=== PATIENT | female | born 1990 | race Caucasian/White ===

== ENCOUNTER → 2020-08-08 08:40 | Outpatient (CLI) | payer OTHER, SELFPAY ==
[2020-08-08 09:15] LABS: Add Manual Diff / Slide Review NO; Basophils Absolute Auto 100 /uL (0-100); Basophils Percent Auto 0.8 % (0-2); Eosinophils Absolute Auto 100 /uL (0-450); Eosinophils Percent Auto 1.2 % (2-4); Hematocrit 43.2 % (36-46); Hemoglobin 13.9 g/dL (12.0-16.0); Lymphocytes Absolute Auto 2000 /uL (1100-4500); Lymphocytes Percent Auto 19.5 % (25-40); Mean Corpuscular HGB Conc 32.2 % (30-36); Mean Corpuscular Hemoglobin 23.8 PG (26-34); Mean Corpuscular Volume 73.7 fL (80-100); Monocytes Absolute Auto 500 /uL (0-900); Monocytes Percent Auto 5.2 % (3-14); Neutrophils Absolute Auto 7300 /uL (1500-7000); Neutrophils Percent Auto 73.3 % (50-75); Platelet Count 310 X10^3/uL (150-400); Red Blood Cell Count 5.86 X10^6/uL (4.0-5.2); Red Cell Distribution Width 15.5 % (11.6-14.8)
[2020-08-08 09:24] LABS: Hemoglobin A1C% w Est Avg Glu 10.4 % (4.0-6.0)
[2020-08-08 09:33] LABS: Appearance Urine UA CLEAR; Bilirubin Urine UA NEGATIVE (NEGATIVE); Color Urine UA YELLOW; Glucose Urine UA 2+ g/dL (Negative); Ketones Urine UA NEGATIVE (NEGATIVE); Leukocyte Esterase Urine UA 1+ (NEGATIVE); Nitrite Urine UA NEGATIVE (Negative); Occult Blood Urine UA TRACE-LYSED (Negative); Protein Urine UA NEGATIVE (Negative); Urobilinogen Urine UA 0.2 E.U./dL (0.2)
[2020-08-08 09:46] LABS: Bacteria Urine Few (2-10); RBC Urine 0-1/HPF (0-5/HPF); Squamous Epithelial Cell Urine 10-30 /HPF (0-5/HPF); WBC Urine 10-30/HPF (0-5/HPF)
[2020-08-09 03:36] LABS: RPR Screen Non Reactive (Non Reactive)
[2020-08-09 11:39] LABS: Varicella IgG Antibody 222 index (Immune >165)
[2020-08-09 16:02] LABS: Hepatitis B Surface Antigen NEGATIVE s/c (NEGATIVE); Rubella Antibody IgG 21.5 IU/mL (>15)
[2020-08-09 16:41] LABS: HIV 1 & 2 Ab/Ag 4th Gen Combo NEGATIVE (NEGATIVE); Hep C Virus Ab w/Reflex Quant NEGATIVE s/c (NEGATIVE)
== END ==
PROVIDERS: Referring Provider Specialist; Visit Provider Specialist
DX: Z34.01 Encounter for supervision of normal first pregnancy, first trimester (principal); R81 Glycosuria
CPT/HCPCS: 36415; 80055; 81003; 81015; 83036; 86787; 86803; 86850; 86900; 86901; 87086; 87389

== ENCOUNTER → 2020-08-22 08:51 | Outpatient (CLI) | payer OTHER, SELFPAY ==
--- NOTE | 2020-08-22 09:49 | DIET.PN ---
INITIAL GESTATIONAL DIABETES ASSESSMENT ASSESS:? Ms. Segura is a 29 yof female referred for gestational on type 2 diabetes. She did not complete an OGTT. She endorses strong family hx of diabetes including brother who is Type 1. She reports overall healthful eating and exercise habits prior to , but since recent diagnosis her brother recommended doing the keto diet. She has been monitoring her BG 4x/d. She is seeing progress in her reading daily through improved dietary behaviors and continues to lose weight. She appears emotional during our appointment. ? GRACE:? Mar 20, 2021 ? WKS GESTATION:?? 10 weeks ?LABS: A1c: 10.5 ? MEDS: na ? DIET:? B: 2 ww toast L: string cheese, cait, cashews D: fajita chicken ? HT:? 62in ? PRE-PREG WT:? 255lb ? PRE-PREG BMI:??? 46.6 ? CURRENT WT: 240lb (245 in office) ? TOTAL WT GAIN:? -15lb EXERCISE: beach body, walking NUTRITION DX 1. Altered nutrition related lab values r/t gestational diabetes as evidenced by recent labs (OGGT). INTERVENTION 1. Discussed pathophysiology of gestational diabetes and impact of hormone and nutrition/diet on blood sugar control.? Discussed fed versus non-fed state.? 2. Recommended checking fasting, pre-meal and 1hr post prandial (3x/day).? Discussed goals for glycemic control (<95 FBG, <140 1-hr PP).? 3. Discussed the effect of carbohydrates/protein/fat on blood sugar control.? Stressed importance of consistent carbohydrate intake at each meal and provided instructions for recommended servings/portions of carbohydrates/protein per meal.? Provided pt with educational material. 4. Introduced carbohydrate counting and measuring carbohydrate content via servings sizes and reading nutrition labels.? Provided handouts.? Pt will need further review 5. Discussed importance of meal timing and not going >3 hours between meals.? Provided sample meal schedule for pt.? Pt agreeable.?? 6. Discussed importance a pre-eula vitamin and including food sources of calcium, vitamin D, iron and folic acid for baby and mother?s nutrition support. 7. Discussed caffeine intake. Recommend no more than 200 mg/day (1 cup coffee). 8. Discussed rule of 15 for hypoglycemia. 9. Recommend patient purchase Urine Ketone strips and instructed on use and when to contact provider. 10. Recommended patient continue exercise as appropriate per PCP approval. 11. Patient may need medication management, will follow-up with plan of care at next visit after reviewing glucose results.? MONITOR/EVAL: Follow up scheduled X 1 week. Good compliance expected. Review: carb sources, carb counting, portion size, meal timing, BG log, weight.
== END ==
PROVIDERS: Referring Provider Specialist; Visit Provider Specialist
DX: O24.410 Gestational diabetes mellitus in pregnancy, diet controlled (principal); Z3A.10 10 weeks gestation of pregnancy
CPT/HCPCS: G0108

== ENCOUNTER → 2020-09-06 11:22 | Outpatient (CLI) | payer OTHER, SELFPAY | PROVIDERS: Visit Provider Specialist | DX: Z34.01 Encounter for supervision of normal first pregnancy, first trimester (principal); Z3A.12 12 weeks gestation of pregnancy | CPT/HCPCS: 87086 ==

== ENCOUNTER → 2020-09-26 16:39 | Outpatient (CLI) | payer OTHER, SELFPAY | PROVIDERS: Visit Provider Specialist | DX: Z34.02 Encounter for supervision of normal first pregnancy, second trimester (principal); Z3A.15 15 weeks gestation of pregnancy | CPT/HCPCS: 87086 ==

== ENCOUNTER → 2020-10-31 08:43 | Outpatient (CLI) | payer OTHER, SELFPAY ==
--- NOTE | 2020-10-31 08:44 | DI.US.S_ITS ---
PROCEDURE: US OB >= 14 WEEKS FETUS INDICATIONS: ANATOMY OUTSIDE/PRIOR DATING DATA: Last menstrual period (LMP): 06/01/2020. LMP-based estimated date of delivery (GRACE): 03/08/2021 . First dating scan (date and location): 08/08/2020 . Estimated date of delivery (GRACE) from first dating scan: 03/20/2021 . TECHNIQUE: Real-time scanning was performed of the fetus, with image documentation and biometric measurements. Endovaginal scanning: No COMPARISON: [facility], , OB >= 14 WEEKS FETUS, 10/17/2020, 15:37. FINDINGS: General: A single living intrauterine gestation is present. Presentation: Variable Placenta: Placental position is fundal , without previa. Amniotic fluid index: 15.3 cm cm, normal range is 5-24 cm. heart rate: 140 beats per minute. Maternal cervical canal: 4.8 cm cm long. Normal lower limit is 2.5 cm. biometrics: Biparietal diameter: 20 weeks Head circumference: 19 weeks 5 Abdominal circumference: 20 weeks 1 day Femur length: 19 weeks Estimated gestational age from initial scan: 20 weeks Composite gestational age from present scan: 19 weeks 5 days Estimated weight and percentile: 306 g; 28th percentile. Measurement variability for biometric dating: +/- 7 days from 14 weeks to 15 weeks 6 days gestation, +/- 10 days from 16 weeks to 21 weeks 6 days gestation, +/- 2 weeks from 22 weeks to 27 weeks 6 days gestation, +/- 3 weeks for 28 weeks gestation or later. weight reference: 4500 g or EFW >90/95% is considered macrosomia or large for gestational age. EFW <10% is small for gestational age. EFW 5% or less is considered intra-uterine growth restriction. Anatomic survey: Neuro: Ventricles are non-dilated at less than 10 mm. Cisterna magna is normal at 3-11 mm. Cerebellum is normal in size and morphology. Nuchal skin fold: Normal at less than 6 mm between 14-21 weeks gestational age. Face: Nose and lips, facial profile are normal. Spine: No evidence for spina bifida. Heart: 4-chambered heart is present, with normal ventricular outflow tracts. Diaphragm: Diaphragm is intact. Stomach: Left-sided stomach is present. Kidneys: No hydronephrosis. Normal is less than 5 mm in 2nd trimester, less than 7 mm in 3rd trimester. Cord: 3-vessel cord has orthotopic insertion. Bladder: Normal in size. Extremities: All 4 extremities identified. IMPRESSION: 1. Single living IUP redemonstrated and interval growth is normal. 2. Normal anatomic survey. Dictated by: Simon GARCIA Interpreted: Sourav Mei MD on 10/31/2020 at 10:52 Transcribed by: KEIRY on 10/31/2020 at 10:53 Approved by: Sourav Mei M.D. on 10/31/2020 at 14:53
== END ==
PROVIDERS: Referring Provider Specialist; Visit Provider Specialist
DX: Z34.02 Encounter for supervision of normal first pregnancy, second trimester (principal); Z3A.19 19 weeks gestation of pregnancy
CPT/HCPCS: 76811

== ENCOUNTER → 2020-12-19 09:02 | Outpatient (CLI) | payer OTHER, SELFPAY ==
[2020-12-19 10:57] LABS: Hematocrit 36.1 % (36-46)
[2020-12-19 11:42] LABS: GTT (PREG) 1 Hour PP 50gm Dose 209 mg/dL (76-139)
== END ==
PROVIDERS: Referring Provider Specialist; Visit Provider Specialist
DX: Z34.02 Encounter for supervision of normal first pregnancy, second trimester (principal); Z3A.25 25 weeks gestation of pregnancy
CPT/HCPCS: 36415; 82950; 85014; 85018; 86850

== ENCOUNTER → 2021-01-17 08:02 | Outpatient (CLI) | payer OTHER, SELFPAY ==
--- NOTE | 2021-01-17 08:03 | DI.US.S_ITS ---
PROCEDURE: US OB LIMITED INDICATIONS: LARGE FOR DATES; GESTATIONAL DIABETES OUTSIDE/PRIOR DATING DATA: Last menstrual period (LMP): 06/01/2020. LMP-based estimated date of delivery (GRACE): 03/08/2021 . First dating scan (date and location): 08/08/2020 . Estimated date of delivery (GRACE) from first dating scan: 03/20/2021 . TECHNIQUE: Real-time scanning was performed of the fetus, with image documentation and biometric measurements. Endovaginal scanning: No COMPARISON: [facility], , OB >= 14 WEEKS FETUS, 12/19/2020, 8:53. FINDINGS: General: A single living intrauterine gestation is present. Presentation: Vertex. Placenta: Placental position is left fundal , without previa. Amniotic fluid index: 12.8 cm, normal range is 5-24 cm. heart rate: 158 beats per minute. Maternal cervical canal: 5.2 cm long. Normal lower limit is 2.5 cm. biometrics: Biparietal diameter: 32 weeks 5 days Head circumference: 33 weeks Abdominal circumference: 34 weeks Femur length: 33 weeks 5 days Estimated gestational age from initial scan: 31 weeks 1 day Composite gestational age from present scan: 33 weeks 3 days Estimated weight and percentile: 2250 g, 98th percentile Measurement variability for biometric dating: +/- 7 days from 14 weeks to 15 weeks 6 days gestation, +/- 10 days from 16 weeks to 21 weeks 6 days gestation, +/- 2 weeks from 22 weeks to 27 weeks 6 days gestation, +/- 3 weeks for 28 weeks gestation or later. weight reference: 4500 g or EFW >90/95% is considered macrosomia or large for gestational age. EFW <10% is small for gestational age. EFW 5% or less is considered intra-uterine growth restriction. Other: Not applicable. IMPRESSION: 1. Single living IUP redemonstrated and interval growth is greater than expected and developing macrosomia cannot be excluded. Follow-up growth is recommended. Dictated by: Simon GARCIA Interpreted: Sourav Mei MD on 01/18/2021 at 15:51 Transcribed by: KEIRY on 01/18/2021 at 15:53 Approved by: Sourav Mei M.D. on 01/18/2021 at 16:55
== END ==
PROVIDERS: Referring Provider Obstetrics & Gynecology; Visit Provider Obstetrics & Gynecology
DX: O24.913 Unspecified diabetes mellitus in pregnancy, third trimester (principal); O26.843 Uterine size-date discrepancy, third trimester; Z3A.33 33 weeks gestation of pregnancy
CPT/HCPCS: 76815

== ENCOUNTER 2021-02-06 10:47 | Observation (INO) | payer OTHER, SELFPAY ==
[2021-02-06 11:25] LABS: Add Manual Diff / Slide Review NO; Basophils Absolute Auto 100 /uL (0-100); Basophils Percent Auto 0.6 % (0-2); Eosinophils Absolute Auto 0 /uL (0-450); Eosinophils Percent Auto 0.5 % (2-4); Hematocrit 36.7 % (36-46); Hemoglobin 12.2 g/dL (12.0-16.0); Lymphocytes Absolute Auto 1600 /uL (1100-4500); Lymphocytes Percent Auto 16.8 % (25-40); Mean Corpuscular HGB Conc 33.2 % (30-36); Mean Corpuscular Hemoglobin 26.4 PG (26-34); Mean Corpuscular Volume 79.4 fL (80-100); Monocytes Absolute Auto 600 /uL (0-900); Monocytes Percent Auto 5.7 % (3-14); Neutrophils Absolute Auto 7400 /uL (1500-7000); Neutrophils Percent Auto 76.4 % (50-75); Platelet Count 237 X10^3/uL (150-400); Red Blood Cell Count 4.62 X10^6/uL (4.0-5.2); Red Cell Distribution Width 13.2 % (11.6-14.8); White Blood Cell Count 9.7 X10^3/uL (4.5-11.0)
[2021-02-06 11:38] LABS: Alanine Aminotransferase 19 IU/L (<35); Albumin 3.2 g/dL (3.5-5.0); Alkaline Phosphatase 99 U/L (38-126); Aspartate Aminotransferase 23 IU/L (14-36); Bilirubin Total 0.2 mg/dL (0.2-1.3); Blood Urea Nitrogen 6 mg/dL (7-17); Carbon Dioxide 20 mmol/L (22-32); Chloride 105 mmol/L (98-107); Estimated Glomerular Filt Rate > 60.0 mL/min (>60); Globulin 3.1 g/dL (1.7-4.1); Glucose 128 mg/dL (70-100); HEMOLYSIS < 15 (0-50); Potassium 4.2 mmol/L (3.4-5.1); Sodium 133 mmol/L (137-145); Total Protein 6.3 g/dL (6.3-8.2); Uric Acid 5.8 mg/dL (2.5-6.2)
--- NOTE | 2021-02-06 11:50 | PM.OBTRLD ---
Visit Information Visit Information Date of evaluation: 02/06/21 Primary OB Provider: Swathi Webster Reason for Evaluation: Yes non-stress test non-stress test reason: diabetes and hypertension/pre-eclampsia [facility] Medical History (Updated 02/06/21 @ 08:58 by Swathi Webster MD) Anemia (~2017) Chicken pox (~1991) Diabetes mellitus affecting in first trimester Heavy menstrual period Hypertension (~2018) Hypertension affecting in first trimester Irregular menstrual cycle Liver disease (~2017) Melanoma (~2015) Migraines (~2018) Painful menstrual periods PCOS (polycystic ovarian syndrome) Skin cancer (~2015) Surgical History (Updated 08/02/20 @ 19:36 by Niya Ibarra) Anesthesia History of tonsillectomy (~2011) Skin cancer (~04/2015) Status post appendectomy (~1994) Family History (Updated 08/03/20 @ 12:20 by Lianne Jiang RN) Brother Age: 27 Type 1 diabetes Father Sperm donor Grandfather Malignant neoplasm of colon, unspecified part of colon Diabetes mellitus Grandmother Heart disease Mother Age: 59 Essential hypertension Depression Hyperlipidemia Grandmother Stroke Dementia Social History marital status: number of children: 2 household members: spouse and children lives independently: Yes caregiver/support person: No housing: house pets and animals: Yes (Dog & 1 rabbit.) education level: college occupational status: employed current occupational exposures/hazards: No special iliana needs: No seatbelt use: always do you feel safe at home: Yes Smoking Status: Never smoker second hand exposure: No alcohol intake: never substance use type: does not use during the past year weight has: decreased > 10 lbs well-balanced diet: daily or most days daily servings fruits/ve-4 caffeine: Yes (Tea. ) Type(s) of exercise: walking and regular exercise frequency: daily duration: 30-45 minutes/day Objective Labs Result Diagrams: 02/06/21 11:15 02/06/21 11:15 Labs: Laboratory Results - last 24 hr 02/06/21 02/06/21 11:15 11:15 WBC 9.7 RBC 4.62 Hgb 12.2 Hct 36.7 MCV 79.4 L MCH 26.4 MCHC 33.2 RDW 13.2 Plt Count 237 Neut % (Auto) 76.4 H Lymph % (Auto) 16.8 L [place] % (Auto) 5.7 Eos % (Auto) 0.5 L Baso % (Auto) 0.6 Neut # (Auto) 7400 H Lymph # (Auto) 1600 [place] # (Auto) 600 Eos # (Auto) 0 Baso # (Auto) 100 Sodium 133 L Potassium 4.2 Chloride 105 Carbon Dioxide 20 L BUN 6 L Creatinine 0.43 L Estimated GFR > 60.0 BUN/Creatinine Ratio 14.0 Glucose 128 H Uric Acid 5.8 Calcium 9.0 Total Bilirubin 0.2 AST 23 ALT 19 Alkaline Phosphatase 99 Total Protein 6.3 Albumin 3.2 L Globulin 3.1 Albumin/Globulin Ratio 1.0 Evaluation Evaluation Baseline heart rate: 130 Variability: Moderate (11-25) monitor accelerations: Present Monitor Decelerations: Absent Diagnosis, Plan/Disposition Plan/Disposition Plan: Reactive nonstress test. PIH labs normal. Follow-up weekly. OB Disposition: home
[2021-02-06 14:49] LABS: Creatinine Urine Random 25.2 mg/dL; Protein (Total) Urine Random 14 mg/dL (0-12); Protein Creatinine Ratio Urine 0.55 GRAM/24H
== END 2021-02-06 12:00 | disposition home or self-care (01) ==
PROVIDERS: Admitting Provider Specialist; Referring Provider Specialist; Visit Provider Specialist
DX: O24.419 Gestational diabetes mellitus in pregnancy, unspecified control (principal); O10.913 Unspecified pre-existing hypertension complicating pregnancy, third trimester; Z3A.34 34 weeks gestation of pregnancy
CPT/HCPCS: 36415; 59025; 80053; 82570; 84156; 84550; 85025; G0378; G0379

== ENCOUNTER 2021-02-13 16:22 | Outpatient (CLI) | payer OTHER, SELFPAY ==
--- NOTE | 2021-02-13 17:40 | PM.OBTRLD ---
Visit Information Visit Information Date of evaluation: 02/13/21 Primary OB Provider: Swathi Webster Reason for Evaluation: Yes non-stress test non-stress test reason: diabetes and hypertension/pre-eclampsia [facility] Medical History (Updated 02/13/21 @ 17:41 by Swathi Webster MD) Anemia (~2017) Chicken pox (~1991) Diabetes mellitus affecting in first trimester Heavy menstrual period Hypertension (~2018) Hypertension affecting in first trimester Irregular menstrual cycle Liver disease (~2017) Melanoma (~2015) Migraines (~2018) Painful menstrual periods PCOS (polycystic ovarian syndrome) Skin cancer (~2015) Surgical History (Updated 08/02/20 @ 19:36 by Niya Ibarra) Anesthesia History of tonsillectomy (~2011) Skin cancer (~04/2015) Status post appendectomy (~1994) Family History (Updated 08/03/20 @ 12:20 by Lianne Jiang RN) Brother Age: 27 Type 1 diabetes Father Sperm donor Grandfather Malignant neoplasm of colon, unspecified part of colon Diabetes mellitus Grandmother Heart disease Mother Age: 59 Essential hypertension Depression Hyperlipidemia Grandmother Stroke Dementia Social History marital status: number of children: 2 household members: spouse and children lives independently: Yes caregiver/support person: No housing: house pets and animals: Yes (Dog & 1 rabbit.) education level: college occupational status: employed current occupational exposures/hazards: No special iliana needs: No seatbelt use: always do you feel safe at home: Yes Smoking Status: Never smoker second hand exposure: No alcohol intake: never substance use type: does not use during the past year weight has: decreased > 10 lbs well-balanced diet: daily or most days daily servings fruits/ve-4 caffeine: Yes (Tea. ) Type(s) of exercise: walking and regular exercise frequency: daily duration: 30-45 minutes/day Evaluation Evaluation Baseline heart rate: 150 Variability: Moderate (11-25) monitor accelerations: Present Monitor Decelerations: Absent Category of Tracing: Reactive Status: Category l Diagnosis, Plan/Disposition Final Diagnosis (1) Hypertension affecting in third trimester: Status: Acute (2) Diabetes mellitus affecting in third trimester: Status: Acute (3) 35 weeks gestation of : Status: Acute Plan/Disposition Plan: Reactive nonstress test. Patient will start 24 hour urine for protein. Routine precautions reviewed. OB Disposition: home
== END 2021-02-13 17:45 | disposition home or self-care (01) ==
LOC: OB 02-18 06:51
PROVIDERS: Referring Provider Specialist; Visit Provider Specialist
DX: O24.419 Gestational diabetes mellitus in pregnancy, unspecified control (principal); O10.913 Unspecified pre-existing hypertension complicating pregnancy, third trimester; Z3A.35 35 weeks gestation of pregnancy
CPT/HCPCS: 59025; 59050; G0378; G0379

== ENCOUNTER → 2021-02-15 08:54 | Outpatient (CLI) | payer OTHER, SELFPAY ==
[2021-02-15 15:51] LABS: Collection Time Urine 24 Hours; Protein (Total) Urine Random 11 mg/dL (0-12); Total Protein 24 Hour Urine 209 mg/day (42-225); Total Volume Urine 1900 mL
== END ==
PROVIDERS: Referring Provider Specialist; Visit Provider Specialist
DX: O16.3 Unspecified maternal hypertension, third trimester (principal)
CPT/HCPCS: 84156

== ENCOUNTER 2021-02-20 09:46 | Observation (INO) | payer OTHER, SELFPAY ==
--- NOTE | 2021-02-20 10:20 | P.TNLD_ITS ---
Visit Information Visit Information Date of evaluation: 02/20/21 Primary OB Provider: Swathi Webster Reason for Evaluation: Yes non-stress test non-stress test reason: hypertension/pre-eclampsia Vital Signs Vital Signs: Blood pressure 119/71 [facility] Medical History (Updated 02/20/21 @ 10:22 by Swathi Webster MD) Anemia (~2017) Chicken pox (~1991) Diabetes mellitus affecting in first trimester Heavy menstrual period Hypertension (~2018) Hypertension affecting in first trimester Irregular menstrual cycle Liver disease (~2017) Melanoma (~2015) Migraines (~2018) Painful menstrual periods PCOS (polycystic ovarian syndrome) Skin cancer (~2015) Surgical History (Updated 08/02/20 @ 19:36 by Niya Ibarra) Anesthesia History of tonsillectomy (~2011) Skin cancer (~04/2015) Status post appendectomy (~1994) Family History (Updated 08/03/20 @ 12:20 by Lianne Jiang RN) Brother Age: 27 Type 1 diabetes Father Sperm donor Grandfather Malignant neoplasm of colon, unspecified part of colon Diabetes mellitus Grandmother Heart disease Mother Age: 59 Essential hypertension Depression Hyperlipidemia Grandmother Stroke Dementia Social History marital status: number of children: 2 household members: spouse and children lives independently: Yes caregiver/support person: No housing: house pets and animals: Yes (Dog & 1 rabbit.) education level: college occupational status: employed current occupational exposures/hazards: No special iliana needs: No seatbelt use: always do you feel safe at home: Yes Smoking Status: Never smoker second hand exposure: No alcohol intake: never substance use type: does not use during the past year weight has: decreased > 10 lbs well-balanced diet: daily or most days daily servings fruits/ve-4 caffeine: Yes (Tea. ) Type(s) of exercise: walking and regular exercise frequency: daily duration: 30-45 minutes/day Evaluation Evaluation Baseline heart rate: 145 Variability: Moderate (11-25) monitor accelerations: Present Monitor Decelerations: Absent Category of Tracing: Reactive Status: Category l Diagnosis, Plan/Disposition Final Diagnosis (1) Hypertension affecting in third trimester: Status: Acute (2) Diabetes mellitus affecting in third trimester: Status: Acute (3) 36 weeks gestation of : Status: Acute Plan/Disposition Plan: Reactive nonstress test. Blood pressure better with rest than in the office and patient states better at home. Continue weekly nonstress tests. OB Disposition: home
--- NOTE | 2021-02-20 11:17 | DI.US.S_ITS ---
PROCEDURE: US OB BIOPHYSICAL PROFILE INDICATIONS: DECREASED MOVEMENT OUTSIDE/PRIOR DATING DATA: Last menstrual period (LMP): 06/01/2020. LMP-based estimated date of delivery (GRACE): 03/08/2021. First dating scan (date and location): 08/08/2020; Dr. Webster. Estimated date of delivery (GRACE) from first dating scan: 03/20/2021. TECHNIQUE: Real-time scanning was performed of the fetus, with image documentation and biometric measurements. Biophysical profile was also obtained. Endovaginal scanning: Not performed COMPARISON: None. FINDINGS: General: A single living intrauterine gestation is present. Presentation: Vertex. Placenta: Placental position is left frontal, without previa. Amniotic fluid index: 25.8 cm, normal range is 5-24 cm. heart rate: 150 beats per minute. Maternal cervical canal: Not visualized. biometrics: Not performed Estimated gestational age from initial scan: 36 weeks 0 day. Measurement variability for biometric dating: +/- 7 days from 14 weeks to 15 weeks 6 days gestation, +/- 10 days from 16 weeks to 21 weeks 6 days gestation, +/- 2 weeks from 22 weeks to 27 weeks 6 days gestation, +/- 3 weeks for 28 weeks gestation or later. weight reference: 4500 g or EFW >90/95% is considered macrosomia or large for gestational age. EFW <10% is small for gestational age. EFW 5% or less is considered intra-uterine growth restriction. Biophysical profile: Tone: 2 points. Movement: 2 points. Respiration: 2 points. Largest pocket of fluid: 2 points. IMPRESSION: 1. A single living IUP is again demonstrated. 2. Normal biophysical profile. 3. Polyhydramnios. Dictated by: Vilma Mobley M.D. on 02/20/2021 at 14:57 Approved by: Vilma Mobley M.D. on 02/20/2021 at 15:02
== END 2021-02-20 11:40 | disposition home or self-care (01) ==
PROVIDERS: Admitting Provider Specialist; Referring Provider Specialist; Visit Provider Specialist
DX: O24.415 Gestational diabetes mellitus in pregnancy, controlled by oral hypoglycemic drugs (principal); O13.3 Gestational [pregnancy-induced] hypertension without significant proteinuria, third trimester; Z3A.36 36 weeks gestation of pregnancy; Z34.03 Encounter for supervision of normal first pregnancy, third trimester
CPT/HCPCS: 59025; 76819; 87653; G0378; G0379

== ENCOUNTER → 2021-02-20 10:03 | Outpatient (CLI) | payer OTHER, SELFPAY ==
[2021-02-21 08:41] LABS: Strep Grp B PCR NEG for Grp B Strep
== END ==
PROVIDERS: Visit Provider Specialist
DX: Z34.03 Encounter for supervision of normal first pregnancy, third trimester (principal); Z3A.36 36 weeks gestation of pregnancy
CPT/HCPCS: 87653

== ENCOUNTER 2021-02-24 09:59 | Outpatient (CLI) | payer OTHER, SELFPAY | END 2021-02-24 10:55 | disposition home or self-care (01) | LOC: LABOR 10:06 → OB 02-26 06:59 | PROVIDERS: Referring Provider Family Medicine; Visit Provider Family Medicine | DX: O24.415 Gestational diabetes mellitus in pregnancy, controlled by oral hypoglycemic drugs (principal); O10.913 Unspecified pre-existing hypertension complicating pregnancy, third trimester; Z3A.36 36 weeks gestation of pregnancy | CPT/HCPCS: 59025; G0378; G0379 ==

== ENCOUNTER 2021-02-26 09:26 | Outpatient (CLI) | payer OTHER, SELFPAY ==
[2021-02-26 10:06] LABS: Add Manual Diff / Slide Review NO; Basophils Absolute Auto 100 /uL (0-100); Basophils Percent Auto 0.7 % (0-2); Eosinophils Absolute Auto 100 /uL (0-450); Eosinophils Percent Auto 0.6 % (2-4); Hemoglobin 12.2 g/dL (12.0-16.0); Lymphocytes Absolute Auto 1500 /uL (1100-4500); Lymphocytes Percent Auto 16.8 % (25-40); Mean Corpuscular HGB Conc 32.9 % (30-36); Mean Corpuscular Hemoglobin 26.1 PG (26-34); Mean Corpuscular Volume 79.1 fL (80-100); Monocytes Absolute Auto 500 /uL (0-900); Monocytes Percent Auto 5.6 % (3-14); Neutrophils Absolute Auto 6900 /uL (1500-7000); Neutrophils Percent Auto 76.3 % (50-75); Platelet Count 260 X10^3/uL (150-400); Red Blood Cell Count 4.67 X10^6/uL (4.0-5.2); Red Cell Distribution Width 14.3 % (11.6-14.8)
[2021-02-26 10:19] LABS: Alanine Aminotransferase 20 IU/L (<35); Albumin 3.1 g/dL (3.5-5.0); Alkaline Phosphatase 102 U/L (38-126); Aspartate Aminotransferase 22 IU/L (14-36); BUN Creatinine Ratio 23.7 (6-22); Bilirubin Total 0.2 mg/dL (0.2-1.3); Bilirubin Unconjugated 0.1 mg/dL (0.0-1.1); Blood Urea Nitrogen 9 mg/dL (7-17); Calcium 9.2 mg/dL (8.4-10.2); Carbon Dioxide 19 mmol/L (22-32); Chloride 108 mmol/L (98-107); Estimated Glomerular Filt Rate > 60.0 mL/min (>60); Globulin 3.2 g/dL (1.7-4.1); Glucose 182 mg/dL (70-100); HEMOLYSIS < 15 (0-50); Sodium 134 mmol/L (137-145); Total Protein 6.3 g/dL (6.3-8.2); Uric Acid 6.2 mg/dL (2.5-6.2)
--- NOTE | 2021-02-26 10:35 | PM.OBTRLD ---
Visit Information Visit Information Date of evaluation: 02/26/21 Primary OB Provider: Swathi Webster Reason for Evaluation: Yes non-stress test non-stress test reason: diabetes and hypertension/pre-eclampsia [facility] Medical History (Updated 02/20/21 @ 10:22 by Swathi Webster MD) Anemia (~2017) Chicken pox (~1991) Diabetes mellitus affecting in first trimester Heavy menstrual period Hypertension (~2018) Hypertension affecting in first trimester Irregular menstrual cycle Liver disease (~2017) Melanoma (~2015) Migraines (~2018) Painful menstrual periods PCOS (polycystic ovarian syndrome) Skin cancer (~2015) Surgical History (Updated 08/02/20 @ 19:36 by Niya Ibarra) Anesthesia History of tonsillectomy (~2011) Skin cancer (~04/2015) Status post appendectomy (~1994) Family History (Updated 08/03/20 @ 12:20 by Lianne Jiang RN) Brother Age: 27 Type 1 diabetes Father Sperm donor Grandfather Malignant neoplasm of colon, unspecified part of colon Diabetes mellitus Grandmother Heart disease Mother Age: 59 Essential hypertension Depression Hyperlipidemia Grandmother Stroke Dementia Social History marital status: number of children: 2 household members: spouse and children lives independently: Yes caregiver/support person: No housing: house pets and animals: Yes (Dog & 1 rabbit.) education level: college occupational status: employed current occupational exposures/hazards: No special iliana needs: No seatbelt use: always do you feel safe at home: Yes Smoking Status: Never smoker second hand exposure: No alcohol intake: never substance use type: does not use during the past year weight has: decreased > 10 lbs well-balanced diet: daily or most days daily servings fruits/ve-4 caffeine: Yes (Tea. ) Type(s) of exercise: walking and regular exercise frequency: daily duration: 30-45 minutes/day Objective Labs Result Diagrams: 02/26/21 09:55 02/26/21 09:55 Labs: Laboratory Results - last 24 hr 02/26/21 02/26/21 09:55 09:55 WBC 9.0 RBC 4.67 Hgb 12.2 Hct 37.0 MCV 79.1 L MCH 26.1 MCHC 32.9 RDW 14.3 Plt Count 260 Neut % (Auto) 76.3 H Lymph % (Auto) 16.8 L [place] % (Auto) 5.6 Eos % (Auto) 0.6 L Baso % (Auto) 0.7 Neut # (Auto) 6900 Lymph # (Auto) 1500 [place] # (Auto) 500 Eos # (Auto) 100 Baso # (Auto) 100 Sodium 134 L Potassium 4.0 Chloride 108 H Carbon Dioxide 19 L BUN 9 Creatinine 0.38 L Estimated GFR > 60.0 BUN/Creatinine Ratio 23.7 H Glucose 182 H Uric Acid 6.2 Calcium 9.2 Total Bilirubin 0.2 Conjugated Bilirubin 0.0 Unconjugated Bilirubin 0.1 AST 22 ALT 20 Alkaline Phosphatase 102 Total Protein 6.3 Albumin 3.1 L Globulin 3.2 Albumin/Globulin Ratio 1.0 Evaluation Evaluation Baseline heart rate: 140 Variability: Moderate (11-25) monitor accelerations: Present Monitor Decelerations: Absent Category of Tracing: Reactive Status: Category l Diagnosis, Plan/Disposition Final Diagnosis (1) 36 weeks gestation of : Status: Acute (2) Hypertension affecting in third trimester: Status: Acute (3) Diabetes mellitus affecting in third trimester: Status: Acute Plan/Disposition Plan: H labs normal. Despite patient stating her blood sugars at home are normal her blood sugar here was 180. Discussed induction on 03/12 when I return. However she will be evaluated by 1 of my partners next week and decision whether she needs to be induced sooner. OB Disposition: home
== END 2021-02-26 10:45 | disposition home or self-care (01) ==
LOC: LABOR 09:29 → OB 02-27 13:02
PROVIDERS: Referring Provider Specialist; Visit Provider Specialist
DX: O10.913 Unspecified pre-existing hypertension complicating pregnancy, third trimester (principal); O24.415 Gestational diabetes mellitus in pregnancy, controlled by oral hypoglycemic drugs; Z3A.36 36 weeks gestation of pregnancy
CPT/HCPCS: 36415; 59025; 80053; 80076; 84550; 85025; G0378; G0379

== ENCOUNTER 2021-03-02 10:18 | Observation (INO) | payer OTHER, SELFPAY ==
--- NOTE | 2021-03-02 11:49 | DI.US.S_ITS ---
PROCEDURE: US OB LIMITED INDICATIONS: NON REASSURING STRIP OUTSIDE/PRIOR DATING DATA: Last menstrual period (LMP): 06/01/2020 LMP-based estimated date of delivery (GRACE): 03/08/2021. First dating scan (date and location): 08/08/2020, [place]. Estimated date of delivery (GRACE) from first dating scan: 03/20/2021 . TECHNIQUE: Real-time scanning was performed of the fetus, with image documentation and biometric measurements. Biophysical profile was also obtained. COMPARISON: [facility], OB LIMITED, 01/17/2021, 8:21. FINDINGS: General: A single live intrauterine gestation is present. Presentation: Vertex. Placenta: Placental position is left fundal , without previa. Amniotic fluid index: 17.7 cm, normal range is 5-24 cm. heart rate: 141 beats per minute. Maternal cervical canal: Not seen. biometrics: Biparietal diameter: 9.2 cm equals 37 weeks 4 days Head circumference: 33.3 cm equals 38 weeks 0 days Abdominal circumference: 35.4 cm equals 39 weeks 2 days Femur length: 7.5 cm equals 38 weeks 4 days Estimated gestational age from initial scan: 37 weeks 3 days Composite gestational age from present scan: 38 weeks 3 days Estimated weight and percentile: 3593 g, 88th percentile Measurement variability for biometric dating: +/- 7 days from 14 weeks to 15 weeks 6 days gestation, +/- 10 days from 16 weeks to 21 weeks 6 days gestation, +/- 2 weeks from 22 weeks to 27 weeks 6 days gestation, +/- 3 weeks for 28 weeks gestation or later. weight reference: 4500 g or EFW >90/95% is considered macrosomia or large for gestational age. EFW <10% is small for gestational age. EFW 5% or less is considered intra-uterine growth restriction. Biophysical profile: Tone: 2 points. Movement: 2 points. Respiration: 2 points. Largest pocket of fluid: 2 points. (7.9 cm) IMPRESSION: Normal biophysical profile, 8/8 points. Normal interval growth when compared to the prior ultrasound examination. On the current study, the estimated weight is 3593 g, which is considered to be at the 88th percentile. However, please correlate for development of macrosomia. Dictated by: Jin Zepeda M.D. on 03/02/2021 at 12:00 Approved by: Jin Zepeda M.D. on 03/02/2021 at 12:03
--- NOTE | 2021-03-02 13:18 | PM.OBTRLD ---
Visit Information Visit Information Date of evaluation: 03/02/21 Primary OB Provider: Swathi Webster On-call OB Provider: Sandie Lenz Reason for Evaluation: Yes non-stress test non-stress test reason: diabetes (on Metformin) and hypertension/pre-eclampsia [facility] Medical History (Updated 02/20/21 @ 10:22 by Sawthi Webster MD) Anemia (~2017) Chicken pox (~1991) Diabetes mellitus affecting in first trimester Heavy menstrual period Hypertension (~2018) Hypertension affecting in first trimester Irregular menstrual cycle Liver disease (~2017) Melanoma (~2015) Migraines (~2018) Painful menstrual periods PCOS (polycystic ovarian syndrome) Skin cancer (~2015) Surgical History (Updated 08/02/20 @ 19:36 by Niya Ibarra) Anesthesia History of tonsillectomy (~2011) Skin cancer (~04/2015) Status post appendectomy (~1994) Family History (Updated 08/03/20 @ 12:20 by Lianne Jiang RN) Brother Age: 27 Type 1 diabetes Father Sperm donor Grandfather Malignant neoplasm of colon, unspecified part of colon Diabetes mellitus Grandmother Heart disease Mother Age: 59 Essential hypertension Depression Hyperlipidemia Grandmother Stroke Dementia Social History marital status: number of children: 2 household members: spouse and children lives independently: Yes caregiver/support person: No housing: house pets and animals: Yes (Dog & 1 rabbit.) education level: college occupational status: employed current occupational exposures/hazards: No special iliana needs: No seatbelt use: always do you feel safe at home: Yes Smoking Status: Never smoker second hand exposure: No alcohol intake: never substance use type: does not use during the past year weight has: decreased > 10 lbs well-balanced diet: daily or most days daily servings fruits/ve-4 caffeine: Yes (Tea. ) Type(s) of exercise: walking and regular exercise frequency: daily duration: 30-45 minutes/day Evaluation Evaluation Baseline heart rate: 145 Variability: Moderate (11-25) monitor accelerations: Present Monitor Decelerations: Absent Category of Tracing: Reactive Diagnosis, Plan/Disposition Plan/Disposition Plan: Assessment: 30-year-old 1 para 0 at 37-,3/7 weeks gestation with gestational diabetes on metformin, and hypertension Initially nonstress test not reactive, obtained biophysical profile which was 8/8. Subsequent nonstress test reactive Plan: Follow-up in 4 days in office with Dr. Arboleda Nonstress test scheduled for that day kick counts reviewed OB Disposition: home
== END 2021-03-02 13:00 | disposition home or self-care (01) ==
PROVIDERS: Admitting Provider Obstetrics & Gynecology; Referring Provider Obstetrics & Gynecology; Visit Provider Obstetrics & Gynecology
DX: O24.415 Gestational diabetes mellitus in pregnancy, controlled by oral hypoglycemic drugs (principal); O10.913 Unspecified pre-existing hypertension complicating pregnancy, third trimester; Z3A.37 37 weeks gestation of pregnancy
CPT/HCPCS: 59025; 59050; 76815; 76819; G0378; G0379

== ENCOUNTER 2021-03-06 09:30 | Outpatient (CLI) | payer OTHER, SELFPAY | END 2021-03-06 10:35 | disposition home or self-care (01) | LOC: LABOR 09:36 → OB 03-08 08:52 | PROVIDERS: Referring Provider Obstetrics & Gynecology; Visit Provider Obstetrics & Gynecology | DX: O24.419 Gestational diabetes mellitus in pregnancy, unspecified control (principal); O10.913 Unspecified pre-existing hypertension complicating pregnancy, third trimester; Z3A.38 38 weeks gestation of pregnancy | CPT/HCPCS: 59025; G0378; G0379 ==

== ENCOUNTER 2021-03-09 10:43 | Observation (INO) | payer OTHER, SELFPAY ==
[2021-03-09 13:05] LABS: COVID19 - ADMIT (NP swab/PCR) Negative (Negative)
== END 2021-03-09 11:31 | disposition home or self-care (01) ==
PROVIDERS: Admitting Provider Obstetrics & Gynecology; Referring Provider Obstetrics & Gynecology; Visit Provider Obstetrics & Gynecology
DX: Z34.90 Encounter for supervision of normal pregnancy, unspecified, unspecified trimester (principal); Z20.822 Contact with and (suspected) exposure to COVID-19
CPT/HCPCS: 87635; C9803; G0378; G0379

== ENCOUNTER 2021-03-10 18:43 | Inpatient (IN) | payer OTHER, SELFPAY ==
[2021-03-10] MEDS: LABETALOL 100 MG TABLET 200 MG PO (19:54)
[2021-03-10 20:27] VITALS: BP 147/98; PULSE 118
[2021-03-10] MEDS: DINOPROSTONE VAG (CERVIDIL) 10 MG VAG (20:34)
[2021-03-10 21:08] LABS: Add Manual Diff / Slide Review NO; Basophils Absolute Auto 100 /uL (0-100); Basophils Percent Auto 0.9 % (0-2); Eosinophils Absolute Auto 100 /uL (0-450); Eosinophils Percent Auto 0.5 % (2-4); Hematocrit 40.7 % (36-46); Hemoglobin 13.3 g/dL (12.0-16.0); Lymphocytes Absolute Auto 2000 /uL (1100-4500); Lymphocytes Percent Auto 17.6 % (25-40); Mean Corpuscular HGB Conc 32.6 % (30-36); Mean Corpuscular Hemoglobin 25.9 PG (26-34); Mean Corpuscular Volume 79.4 fL (80-100); Monocytes Absolute Auto 600 /uL (0-900); Monocytes Percent Auto 5.6 % (3-14); Neutrophils Absolute Auto 8700 /uL (1500-7000); Neutrophils Percent Auto 75.4 % (50-75); Platelet Count 286 X10^3/uL (150-400); Red Blood Cell Count 5.13 X10^6/uL (4.0-5.2); Red Cell Distribution Width 14.8 % (11.6-14.8); White Blood Cell Count 11.6 X10^3/uL (4.5-11.0)
[2021-03-10 21:13] LABS: Aspartate Aminotransferase 27 IU/L (14-36); BUN Creatinine Ratio 27.7 (6-22); Blood Urea Nitrogen 13 mg/dL (7-17); Estimated Glomerular Filt Rate > 60.0 mL/min (>60)
[2021-03-10] MEDS: LACTATED RINGERS 1,000 ML 100 ML IV (22:03)
[2021-03-10 22:41] VITALS: BP 176/101
[2021-03-11] MEDS: ZOLPIDEM 5 MG TABLET PO (01:22)
[2021-03-11] MEDS: LABETALOL 100 MG TABLET 200 MG PO ×2 (08:10→19:12)
[2021-03-11] MEDS: OXYTOCIN PREMIX 30 UNIT/500 ML PLAST..BAG IV (08:40)
[2021-03-11] MEDS: fentaNYL 100 MCG/2 ML INJ 50 MCG IV ×2 (12:15→21:02)
--- NOTE | 2021-03-11 13:05 | PM.OBHP.1 ---
OB HPI Date/Time Date of admission: 03/10/21 Date Patient Seen: 03/11/21 Time Patient Seen: 12:00 History of Present Condition Chief complaint: : 1 Para: 0 Estimated Date of Delivery: 03/20/21 Estimated Gestational Age (weeks): 38 Narrative: Shira Segura is a 30 year old female admitted for induction for chronic hypertension and gestational diabetes at 38 weeks Indications Indication for induction OB: gestational diabetes and medical complication (Chronic hypertension) History of Present care: good care, initiated at week # (8), number of visits (15) and pounds weight gain (22) Dating criteria: LMP confirmed by 1st trimester US Ultrasounds: normal mid trimester US Obstetrical complications: gestational diabetes (Started on metformin) Medical complications: cardiovascular (Chronic hypertension) Preadmission Labs Blood type: A (-) negative -: Antibody screen: negative, GBS status: negative, HBsAG: negative, HIV: negative and RPR/VDLR: negative -: Chlamydia screen: not detected and Gonorrhea screen: not detected -: Rubella: immune and Varicella: immune HCAB: negative 1 hr GTT: 209 Evaluation Evaluation Baseline heart rate: 140 Variability: Average (6-10) monitor accelerations: Present Monitor Decelerations: Episodic Contraction Frequency (minutes): 4 Uterine Contraction Intensity: Moderate Status: Category ll Cervical dilation (cm): 7 Cervical effacement (%): 85 station: -2 [facility] Medical History (Updated 03/06/21 @ 18:12 by Sandie Lenz MD) Anemia (~2017) Chicken pox (~1991) Diabetes mellitus affecting in first trimester Heavy menstrual period Hypertension (~2018) Hypertension affecting in first trimester Irregular menstrual cycle Liver disease (~2017) Melanoma (~2015) Migraines (~2018) Painful menstrual periods PCOS (polycystic ovarian syndrome) Skin cancer (~2015) Surgical History (Updated 08/02/20 @ 19:36 by Niya Ibarra) Anesthesia History of tonsillectomy (~2011) Skin cancer (~04/2015) Status post appendectomy (~1994) Family History (Updated 08/03/20 @ 12:20 by Lianne Jiang RN) Brother Age: 27 Type 1 diabetes Father Sperm donor Grandfather Malignant neoplasm of colon, unspecified part of colon Diabetes mellitus Grandmother Heart disease Mother Age: 59 Essential hypertension Depression Hyperlipidemia Grandmother Stroke Dementia Social History marital status: number of children: 2 household members: spouse and children lives independently: Yes caregiver/support person: No housing: house pets and animals: Yes (Dog & 1 rabbit.) education level: college occupational status: employed current occupational exposures/hazards: No special iliana needs: No seatbelt use: always do you feel safe at home: Yes Smoking Status: Never smoker second hand exposure: No alcohol intake: never substance use type: does not use during the past year weight has: decreased > 10 lbs well-balanced diet: daily or most days daily servings fruits/ve-4 caffeine: Yes (Tea. ) Type(s) of exercise: walking and regular exercise frequency: daily duration: 30-45 minutes/day Meds Home Medications and Allergies Home Medications Medication Instructions Recorded Confirmed Type ferrous sulfate 325 mg (65 mg 325 mg PO BID 08/03/20 03/06/21 History iron) tablet prenat.vits,ramya,hmf-dhoa-lfera 1 tab PO DAILY 08/03/20 03/06/21 History blood sugar diagnostic (Blood #100 ea 08/09/20 03/06/21 Rx Glucose Test) blood-glucose meter (Blood Glucose #1 ea 08/09/20 03/06/21 Rx Monitoring) lancets (Comfort Lancets) #100 ea 08/09/20 03/06/21 Rx aspirin 81 mg tablet,delayed 81 mg PO DAILY 11/21/20 03/06/21 History release (Adult Aspirin Regimen) metformin 500 mg tablet 500 mg PO DAILY #30 tab 12/21/20 03/06/21 Rx hydrocortisone 2.5 % topical cream 1 applic TOPICAL BID PRN #30 g 01/10/21 03/06/21 Rx Double Electric Breast Pump 1 ea TOPICAL .prn #1 ea 01/23/21 03/06/21 Rx labetalol 100 mg tablet See Rx Instructions .ROUTE 01/31/21 03/06/21 Rx .COMPLEX #90 tab fluconazole 150 mg tablet 150 mg PO Q3D #2 tab 02/20/21 03/06/21 Rx (Diflucan) Allergies Allergy/AdvReac Type Severity Reaction Status Date / Time oxycodone [OXYCODONE] Allergy Intermediate Rash Verified 03/06/21 08:36 Review of Systems Review of Systems Narrative: Patient denies headaches, scotomata, epigastric pain. Good movement. No leakage of fluid. ROS: Yes All systems reviewed with the patient and are negative except as otherwise documented Exam Vital Signs (past 8 hours): Blood pressure 188/93, pulse of 98, temperature 35.8? Narrative Exam Narrative: Patient's HEENT exam within normal limits. Lungs are clear to auscultation percussion. Heart is regular rate and rhythm no S3-S4 murmurs. Abdomen is gravid. Fetus is vertex. Extremities with +1 edema and nontender. DTRs are normal. Objective Labs Result Diagrams: 03/10/21 20:48 03/10/21 20:48 Labs: Laboratory Results - last 24 hr 03/10/21 03/10/21 03/10/21 20:48 20:48 20:48 WBC 11.6 H RBC 5.13 Hgb 13.3 Hct 40.7 MCV 79.4 L MCH 25.9 L MCHC 32.6 RDW 14.8 Plt Count 286 Neut % (Auto) 75.4 H Lymph % (Auto) 17.6 L [place] % (Auto) 5.6 Eos % (Auto) 0.5 L Baso % (Auto) 0.9 Neut # (Auto) 8700 H Lymph # (Auto) 2000 [place] # (Auto) 600 Eos # (Auto) 100 Baso # (Auto) 100 BUN 13 Creatinine 0.47 L Estimated GFR > 60.0 BUN/Creatinine Ratio 27.7 H Uric Acid 7.0 H AST 27 Blood Type A Negative Antibody Screen Negative Assessment and Plan Assessment and Plan Assessment and Plan narrative: 38 week gestation with chronic hypertension and gestational diabetes taking metformin however patient never brought in blood sugar logs so unclear how good her control was. She she was brought in for Cervidil induction. She just received an epidural catheter for pain control. heart tones category 2 with AROM thick meconium. Probable section.
--- NOTE | 2021-03-11 17:07 | PM.OBPNLAB ---
Date/Time Date Patient Seen: 03/11/21 Time Patient Seen: 17:07 Pain Control Pain control: epidural Pelvic Exam Dilation (cm): 6 Effacement (%): 85 station: -2 Amniotic membrane status: Ruptured (Meconium-stained fluid) Contractions Contractions on admission: regular Monitor mode: Internal Contraction frequency (min): 4 Contraction duration (min): 1 Contraction pattern: Regular Contraction intensity: Moderate Intrauterine tone measurement: 70 Status status: Category ll Heart Rate Baseline: 140 Monitor Accelerations: Present Monitor Decelerations: Episodic Monitor Variability: Moderate Assessment and Plan Plan: Comments: Patient with no significant change in her cervix over the past 6 hours despite rupture membranes and placement of internal monitors. Pitocin had to be stopped due to late decelerations. heart tones became more reassuring but still no progress. Consent form for section was reviewed with the patient. Risk of damage to internal structures such as bowel, bladder, ureters that could require additional surgery. Increased risk of infection. Increased risk of bleeding enough to require blood transfusion. Reaction to medication or anesthesia. Consent form signed and questions answered.
--- NOTE | 2021-03-11 17:16 | PM.PREOP ---
Pre-operative Note COVID-19 COVID-19 status: Negative Result date/Date tested (Pos, Neg/Pending): 03/10/21 Interval Note History & Physical reviewed/Exam performed by Physician: Yes Changes to H&P: Yes H&P completed within 30 days and has changed as indicated here:: 1st stage arrest
[2021-03-11 19:12] VITALS: BP 140/70; PULSE 82
[2021-03-11] MEDS: CEFAZOLIN 1 GM VIAL 3 GM IV (19:51)
--- NOTE | 2021-03-11 20:07 | SUR.OPER ---
FHT's 130. Cord blood x 2 to OB with OB RN, placenta to OB with OB Rn.
[2021-03-11] MEDS: LACTATED RINGERS 1,000 ML 100 ML IV (20:11)
--- NOTE | 2021-03-11 20:13 | SUR.OPER ---
TOB live female @ 2011.
[2021-03-11 20:58] VITALS: BP 172/101; PULSE 82; RESP 16; TEMP 36.3; O2SAT 98
[2021-03-11 21:02] VITALS: BP 175/103; PULSE 84; RESP 14; O2SAT 98
[2021-03-11] MEDS: ACETAMINOPHEN 325 MG TABLET 650 MG PO (21:02)
--- NOTE | 2021-03-11 21:08 | P.OP_ITS ---
Operative Date/Time/Diagnoses Date of procedure: 03/11/21 Time of procedure: 21:08 Pre-op diagnosis: 1st stage arrest Post-op diagnosis: same Procedure & Clinicians Procedure: Primary low-transverse section Same procedure as scheduled: Yes Indications: 1st stage arrest Surgeon: Swathi Webster Nuclear Physics Teacher: Sandie Lenz Click Yes if Unassisted: No Anesthesia Type: Epidural Operative Notes Findings: Normal tubes, ovaries, uterus. Viable female infant weighing 9 lb 2 oz with Apgars of 7 and 9 Closure Type: primary Specimen(s): none sent Applied: catheter (Royal) Estimated Blood Loss (mL): 500 Blood products transfused: none Procedure in detail: The patient was brought to the operating room where she underwent injection of her epidural for anesthesia. She was placed in a supine position with a left lateral tilt. A Royal catheter was in place. Pulsatile stockings were placed and functional throughout the case. 3 g of Ancef were given IV prior to the incision. Warming was in place. The patient was prepped and draped in usual sterile fashion. A low transverse incision was made with a scalpel and the incision was carried down to the fascial layer which was incised transversely with scissors. The state tested nursing assistant did her side of the incision. The midline attachments are superiorly and inferiorly. Some bleeding was controlled Bovie and suture on the left muscle with 2 Vicryl. The rectus muscles were in the midline and the peritoneal incision was made with no damage to internal structures. The peritoneum was incised and superiorly and inferiorly. The incision was stretched with the surgeon and state tested nursing assistant placing traction. The Narendra incisional retractor was placed. The bladder blade was placed and a bladder flap was developed and the bladder held away from the lower uterine segment. An incision was made in the uterus with the scalpel and the incision was extended with stretching. The head was elevated out of the abdomen and with fundal pressure by the state tested nursing assistant the baby was delivered. The infant was bulb suctioned for meconium-stained fluid and handed off to the warmer. Cord blood was collected. The placenta delivered spontaneously with traction. The uterus was cleaned with clean laps. The uterine incision was closed in 2 layers of 0 chromic suture the first a running locking layer the second an imbricating layer. The state tested nursing assistant was helping to expose the incision. The bladder peritoneum was repaired with 2-0 Vicryl suture. The gutters were cleaned of any remaining fluids and ovaries and tubes were observed to be normal. Adequate hemostasis was noted. The perineum was closed with 2-0 Vicryl suture. The fascia layer was closed with 0 Vicryl suture with 2 stitches. The state tested nursing assistant repairing half the incision with helping to retract and expose the incision for the other half. The incision was irrigated and adequate hemostasis noted. The incision was closed with interrupted 3-0 Vicryl sutures and then a subcuticular stitch of 4-0 Vicryl suture. Steri-Strips were placed. The uterus was massaged to remove any clots. The patient went to recovery room in good condition. Counts of instruments and sponges were correct. Dr. Lenz was present throughout the case to assist with retraction, fundal pressure to deliver the infant, and suturing half the fascia. Complications: none Post-operative Condition: stable Disposition: other ( Center) Plan for aftercare: Routine post section care
[2021-03-11 21:12] VITALS: BP 188/102; PULSE 83; RESP 18; O2SAT 98
[2021-03-11 21:19] VITALS: BP 188/102; PULSE 88
[2021-03-11] MEDS: HYDRALAZINE 20 MG/ML VIAL 5 MG IV (21:19)
[2021-03-11 21:27] VITALS: BP 155/88; PULSE 84; RESP 14; O2SAT 97
--- NOTE | 2021-03-11 22:36 | SUR.OPER ---
Supine on Padded OR bed, head on pillow, safety belt at thigh, arms secured on padded arm boards at <90 degrees abduction. Bump under right buttock. Legs uncrossed with pillow under knees, gel pad to heels, tape over blanket to lower legs.
[2021-03-12] MEDS: KETOROLAC 30 MG/ML VIAL IV ×3 (02:48→15:32)
[2021-03-12] MEDS: ACETAMINOPHEN 325 MG TABLET 650 MG PO ×4 (03:36→20:30)
[2021-03-12] MEDS: MORPHINE 2 MG/ML INJ IV (05:50)
[2021-03-12 06:14] LABS: Add Manual Diff / Slide Review NO; Basophils Absolute Auto 0 /uL (0-100); Basophils Percent Auto 0.2 % (0-2); Eosinophils Absolute Auto 0 /uL (0-450); Eosinophils Percent Auto 0.2 % (2-4); Hematocrit 34.5 % (36-46); Hemoglobin 11.2 g/dL (12.0-16.0); Lymphocytes Absolute Auto 1800 /uL (1100-4500); Lymphocytes Percent Auto 16.5 % (25-40); Mean Corpuscular HGB Conc 32.5 % (30-36); Mean Corpuscular Hemoglobin 25.8 PG (26-34); Mean Corpuscular Volume 79.4 fL (80-100); Monocytes Absolute Auto 600 /uL (0-900); Monocytes Percent Auto 5.6 % (3-14); Neutrophils Absolute Auto 8600 /uL (1500-7000); Neutrophils Percent Auto 77.5 % (50-75); Platelet Count 227 X10^3/uL (150-400); Red Blood Cell Count 4.34 X10^6/uL (4.0-5.2); Red Cell Distribution Width 14.7 % (11.6-14.8); White Blood Cell Count 11.1 X10^3/uL (4.5-11.0)
[2021-03-12] MEDS: HYDROMORPHONE 4 MG TABLET PO (09:10)
[2021-03-12] MEDS: LABETALOL 100 MG TABLET 200 MG PO ×2 (09:10→20:29)
[2021-03-12] MEDS: DOCUSATE 100 MG CAPSULE 200 MG PO (09:10)
[2021-03-12] MEDS: FERROUS SULFATE 325 MG TABLET PO ×2 (09:11→20:29)
--- NOTE | 2021-03-12 10:24 | P.PNOB_ITS ---
Subjective - OB Subjective Patient comments: incisional pain baby status: doing well and nursing well feeding status: exclusively breast feeding Date Patient Seen: 03/12/21 Time Patient Seen: 09:00 Interval history: Postoperative day 1 status post primary low-transverse cesarea n section for for stage arrest. Patient has incisional pain but has been able to get out of bed. No nausea. No headaches, scotomata, epigastric pain. Exam Vital Signs (past 8 hours): Blood pressure 158/98 prior to a.m. labetalol, pulse of 115, temperature 97.8? Oxygen Delivery Method Room Air Narrative Exam Narrative: Abdomen is soft, nontender. Uterus is firm, somewhat difficult to palpate but above the umbilicus, appropriately tender. Dressing is clean, dry, intact. Extremities without edema and nontender. Mild lochia. Objective Labs Result Diagrams: 03/12/21 05:58 03/10/21 20:48 Labs: Laboratory Results - last 24 hr 03/12/21 03/12/21 05:58 05:58 WBC 11.1 H RBC 4.34 Hgb 11.2 L Hct 34.5 L MCV 79.4 L MCH 25.8 L MCHC 32.5 RDW 14.7 Plt Count 227 Neut % (Auto) 77.5 H Lymph % (Auto) 16.5 L [place] % (Auto) 5.6 Eos % (Auto) 0.2 L Baso % (Auto) 0.2 Neut # (Auto) 8600 H Lymph # (Auto) 1800 [place] # (Auto) 600 Eos # (Auto) 0 Baso # (Auto) 0 Maternal Bleed Negative Assessment & Plan Assessment and Plan (1) Delivery by section using transverse incision of lower segment of uterus: Status: Acute Plan day: 1 plan OB: routine postop care Time Spent With Patient Time: Total time spent is greater than 50% in coordination of care (as documented) at patient's floor/unit and/or counseling patient: Time with patient: less than 15 minutes
[2021-03-12] MEDS: LABETALOL 100 MG TABLET PO ×2 (15:34→23:14)
[2021-03-12 16:45] VITALS: BP 134/92; PULSE 76
[2021-03-12] MEDS: NIFEdipine 30 MG TAB ER PO (17:53)
[2021-03-12 20:29] VITALS: BP 154/94
[2021-03-12 21:00] VITALS: BP 144/87
[2021-03-12] MEDS: IBUPROFEN 600 MG TABLET PO (23:07)
[2021-03-13] MEDS: ACETAMINOPHEN 325 MG TABLET 650 MG PO ×3 (02:23→19:50)
[2021-03-13] MEDS: NIFEdipine 30 MG TAB ER PO (07:47)
[2021-03-13] MEDS: LABETALOL 100 MG TABLET 200 MG PO ×3 (07:47→20:49)
[2021-03-13] MEDS: FERROUS SULFATE 325 MG TABLET PO ×2 (07:47→20:49)
[2021-03-13] MEDS: DOCUSATE 100 MG CAPSULE 200 MG PO (07:47)
[2021-03-13] MEDS: IBUPROFEN 600 MG TABLET PO ×2 (08:08→19:51)
--- NOTE | 2021-03-13 08:33 | PM.OBPN.1 ---
Subjective - OB Subjective Patient comments: pain well controlled, tolerating diet and flatus present [place] baby status: doing well (Now under bili lights) and nursing well feeding status: exclusively breast feeding Date Patient Seen: 03/13/21 Time Patient Seen: 08:00 Interval history: Patient is postoperative day number 2 primary section for for stage arrest. Patient continues to have increased blood pressures. She denies headaches, scotoma, epigastric pain. Pain is well controlled. She is passing gas. She is urinating and ambulating well. Exam Vital Signs (past 8 hours): Blood pressure 161/106, pulse of 97, temperature 97.8 Oxygen Delivery Method Room Air Narrative Exam Narrative: Patient's abdomen is soft, nontender. Uterus is firm, at U, nontender. Dressing is clean, dry, intact. Mild lochia. Extremities with edema and nontender. Objective Labs Result Diagrams: 03/12/21 05:58 03/10/21 20:48 Assessment & Plan Assessment and Plan (1) Delivery by section using transverse incision of lower segment of uterus: Status: Acute Plan day: 2 plan OB: routine postop care Comments: Will increase her nifedipine to try to control her blood pressure. Will recheck preeclamptic labs. Time Spent With Patient Time: Total time spent is greater than 50% in coordination of care (as documented) at patient's floor/unit and/or counseling patient: Time with patient: less than 15 minutes
[2021-03-13 16:00] VITALS: BP 163/93; PULSE 116; RESP 16; TEMP 36.9
[2021-03-13 16:14] LABS: Add Manual Diff / Slide Review NO; Basophils Absolute Auto 100 /uL (0-100); Basophils Percent Auto 0.8 % (0-2); Eosinophils Absolute Auto 100 /uL (0-450); Eosinophils Percent Auto 1.2 % (2-4); Hematocrit 33.3 % (36-46); Hemoglobin 11.1 g/dL (12.0-16.0); Lymphocytes Absolute Auto 1700 /uL (1100-4500); Lymphocytes Percent Auto 16.1 % (25-40); Mean Corpuscular HGB Conc 33.3 % (30-36); Mean Corpuscular Hemoglobin 26.4 PG (26-34); Mean Corpuscular Volume 79.4 fL (80-100); Monocytes Absolute Auto 600 /uL (0-900); Monocytes Percent Auto 5.4 % (3-14); Neutrophils Absolute Auto 8100 /uL (1500-7000); Neutrophils Percent Auto 76.5 % (50-75); Platelet Count 256 X10^3/uL (150-400); Red Blood Cell Count 4.19 X10^6/uL (4.0-5.2); Red Cell Distribution Width 14.9 % (11.6-14.8); White Blood Cell Count 10.6 X10^3/uL (4.5-11.0)
[2021-03-13 16:34] LABS: Alanine Aminotransferase 23 IU/L (<35); Albumin 2.9 g/dL (3.5-5.0); Alkaline Phosphatase 105 U/L (38-126); Aspartate Aminotransferase 27 IU/L (14-36); BUN Creatinine Ratio 23.2 (6-22); Bilirubin Total 0.1 mg/dL (0.2-1.3); Blood Urea Nitrogen 13 mg/dL (7-17); Carbon Dioxide 24 mmol/L (22-32); Chloride 109 mmol/L (98-107); Estimated Glomerular Filt Rate > 60.0 mL/min (>60); Glucose 128 mg/dL (70-100); HEMOLYSIS < 15 (0-50); Potassium 3.8 mmol/L (3.4-5.1); Sodium 137 mmol/L (137-145); Total Protein 5.9 g/dL (6.3-8.2)
[2021-03-13 20:49] VITALS: BP 156/98; PULSE 112
[2021-03-13 21:30] VITALS: BP 138/91; PULSE 104
[2021-03-13 22:44] VITALS: BP 138/91; PULSE 104; RESP 14; TEMP 36.3
[2021-03-14] MEDS: IBUPROFEN 600 MG TABLET PO ×2 (02:40→09:23)
[2021-03-14] MEDS: ACETAMINOPHEN 325 MG TABLET 650 MG PO ×2 (02:41→09:22)
[2021-03-14] MEDS: NIFEdipine 30 MG TAB ER 60 MG PO (09:15)
[2021-03-14] MEDS: LABETALOL 100 MG TABLET 200 MG PO ×2 (09:21→16:32)
[2021-03-14] MEDS: FERROUS SULFATE 325 MG TABLET PO (09:21)
[2021-03-14] MEDS: DOCUSATE 100 MG CAPSULE 200 MG PO (09:22)
--- NOTE | 2021-03-14 10:32 | PM.OBDS.1 ---
Discharge Providers Provider Date of admission: 03/10/21 18:43 Discharge Date: 03/14/21 Consults: 03/11/21 22:44 Consult to Structural Architect Routine Comment: Discharge provider: Swathi Webster MD Summary Hospital Course Date Patient Seen: 03/14/21 Time Patient Seen: 10:32 Diagnoses: Gestational diabetes, chronic hypertension, primary low-transverse section for for stage arrest Hospital Course: Patient was admitted for induction for gestational diabetes and chronic hypertension. She underwent a primary low-transverse section for for stage arrest of a 9 lb 2 oz female Peripartum Data Infant Delivery Method: Section Procedures: Cytotec followed by Pitocin induction. Epidural catheter. Primary low-transverse section. complications: other (Difficulty controlling hypertension) [place] 1: Gender: Female Disposition of : home Discharge Diagnosis (1) Delivery by section using transverse incision of lower segment of uterus: Status: Acute (2) Diabetes mellitus affecting in third trimester: Status: Acute (3) Hypertension affecting in third trimester: Status: Acute (4) Large for gestational age fetus affecting mother, antepartum, third trimester, single gestation: Status: Acute Status at Discharge Cognitive/behavioral status at discharge: oriented Functional status at discharge: independent ambulation Overall status at discharge: patient is progressing back to baseline Time Spent with Patient Time attestation: Total time spent providing and/or coordinating discharge services: Time spent: Less than 30 minutes Objective Labs Result Diagrams: 03/13/21 16:05 03/13/21 16:05 Labs: Laboratory Results - last 24 hr 03/13/21 03/13/21 16:05 16:05 WBC 10.6 RBC 4.19 Hgb 11.1 L Hct 33.3 L MCV 79.4 L MCH 26.4 MCHC 33.3 RDW 14.9 H Plt Count 256 Neut % (Auto) 76.5 H Lymph % (Auto) 16.1 L [place] % (Auto) 5.4 Eos % (Auto) 1.2 L Baso % (Auto) 0.8 Neut # (Auto) 8100 H Lymph # (Auto) 1700 [place] # (Auto) 600 Eos # (Auto) 100 Baso # (Auto) 100 Sodium 137 Potassium 3.8 Chloride 109 H Carbon Dioxide 24 BUN 13 Creatinine 0.56 Estimated GFR > 60.0 BUN/Creatinine Ratio 23.2 H Glucose 128 H Calcium 9.0 Total Bilirubin 0.1 L AST 27 ALT 23 Alkaline Phosphatase 105 Total Protein 5.9 L Albumin 2.9 L Globulin 3.0 Albumin/Globulin Ratio 1.0 Exam Vital Signs (past 8 hours): Blood pressures systolics 130s to 150s, diastolics low of 89 high of 102 mostly mid 90s, pulse of 102, T98.7 Oxygen Delivery Method Room Air Narrative Exam Narrative: Patient's abdomen is soft, nontender. Uterus is firm, at U, nontender. Dressing is clean, dry, intact. Mild lochia. Extremities with +1 edema and nontender. Patient's blood type is A-negative but so was the baby so no RhoGAM indicated. She is rubella immune. She received Tdap in the 3rd trimester. Discharge Plan Discharge Plan Patient Disposition: Home Provider Discharge Comment: Patient has a blood pressure cuff at home and will monitor blood pressures. She feels that she has been under lot of stress with needing to be under bili lights that is contributing to her increased blood pressure. Her PIH labs are normal. She has no signs or symptoms of preeclampsia. Precautions for preeclampsia, DVT, depression reviewed with the patient. Discharge orders & Medications Prescriptions: New nifedipine 30 mg Tablet Extended Release 24hr 60 mg PO DAILY Qty: 30 RF: 1 ibuprofen 600 mg Tablet 600 mg PO Q6H PRN (Reason: Fever/Mild Pain (1-3)) Qty: 30 RF: 0 labetalol 100 mg Tablet 200 mg PO TID Qty: 90 RF: 1 Continued prenat.vits,ramya,wof-wmoi-gbyys Tablet 1 tab PO DAILY RF: 0 ferrous sulfate 325 mg (65 mg iron) tablet 325 mg PO BID RF: 0 hydrocortisone 2.5 % cream 1 applic topical BID PRN (Reason: rash) Qty: 30 RF: 6 Double Electric Breast Pump 1 ea topical .prn Qty: 1 RF: 0 Discontinued (DME) Blood Glucose Test Strip See Rx Instructions .ROUTE .MEDSUPPLY Qty: 100 RF: 4 (DME) blood-glucose meter [Blood Glucose Monitoring] Kit See Rx Instructions .ROUTE .MEDSUPPLY Qty: 1 RF: 0 (DME) lancets [Comfort Lancets] Misc See Rx Instructions .ROUTE .MEDSUPPLY Qty: 100 RF: 4 labetalol 100 mg tablet See Rx Instructions .ROUTE .COMPLEX Qty: 90 RF: 2 fluconazole [Diflucan] 150 mg tablet 150 mg PO Q3D Qty: 2 RF: 0 aspirin [Adult Aspirin Regimen] 81 mg tablet,delayed release (DR/EC) 81 mg PO DAILY RF: 0 metformin 500 mg tablet 500 mg PO DAILY Qty: 30 RF: 3 Follow up/Referrals: Swathi Webster MD [Physician] - 1 Week (Aquacel removal and blood pressure check) Diet/Activity/Treatments Diet: Regular Activity: Nothing in vagina for 4 weeks. Do not lift over 20 lb for 6 weeks. Skin/Wound/Dressing Care Report to your healthcare provider any signs of infection, such as:: chills, fever, increased pain and unusual redness Dressing: Leave dressing on until visit in 1 week
== END 2021-03-14 17:25 | disposition home or self-care (01) | DRG 788 ==
PROVIDERS: Obstetrics & Gynecology; Admitting Provider Specialist; Referring Provider Specialist; Visit Provider Specialist
PROC: 10D00Z1 Extraction of Products of Conception, Low, Open Approach (ICD-10-PCS; CPT 59514; principal; 2021-03-11 19:30)
DX: O10.02 Pre-existing essential hypertension complicating childbirth (principal); O24.425 Gestational diabetes mellitus in childbirth, controlled by oral hypoglycemic drugs; Z3A.38 38 weeks gestation of pregnancy; Z37.0 Single live birth; Z20.822 Contact with and (suspected) exposure to COVID-19; O62.1 Secondary uterine inertia; P08.1 Other heavy for gestational age newborn
CPT/HCPCS: 01967; 01968; 36415; 59025; 59050; 59510; 59514; 80053; 84450; 84550; 85025; 85461; 86850; 86900; 86901; 87635; C9803; G0378; G0379; J0360; J0690; J1885; J2270; J2590; J2704; J3010

== ENCOUNTER → 2023-08-03 15:00 | Outpatient (CLI) | payer OTHER, SELFPAY ==
[2023-08-03 17:03] LABS: Add Manual Diff / Slide Review NO; Basophils Absolute Auto 100 /uL (0-100); Basophils Percent Auto 0.6 % (0-2); Eosinophils Absolute Auto 100 /uL (0-450); Eosinophils Percent Auto 1.1 % (2-4); Hematocrit 40.8 % (36-46); Hemoglobin 13.7 g/dL (12.0-16.0); Lymphocytes Absolute Auto 2300 /uL (1100-4500); Lymphocytes Percent Auto 18.7 % (25-40); Mean Corpuscular HGB Conc 33.5 % (30-36); Mean Corpuscular Hemoglobin 25.9 PG (26-34); Mean Corpuscular Volume 77.3 fL (80-100); Monocytes Absolute Auto 700 /uL (0-900); Monocytes Percent Auto 5.3 % (3-14); Neutrophils Absolute Auto 9300 /uL (1500-7000); Neutrophils Percent Auto 74.3 % (50-75); Platelet Count 269 X10^3/uL (150-400); Red Blood Cell Count 5.28 X10^6/uL (4.0-5.2); Red Cell Distribution Width 15.8 % (11.6-14.8); White Blood Cell Count 12.5 X10^3/uL (4.5-11.0)
[2023-08-03 17:13] LABS: Hemoglobin A1C% w Est Avg Glu 5.9 % (4.0-6.0)
[2023-08-03 17:27] LABS: Alanine Aminotransferase 22 IU/L (<35); Aspartate Aminotransferase 18 IU/L (14-36); BUN Creatinine Ratio 19.6 (6-22); Blood Urea Nitrogen 10 mg/dL (7-17); Estimated Glomerular Filt Rate > 60 mL/min (>60)
[2023-08-03 19:04] LABS: Hepatitis B Surface Antigen NEGATIVE s/c (NEGATIVE); Rubella Antibody IgG 24.9 IU/mL (>15)
[2023-08-03 19:47] LABS: HIV 1 & 2 Ab/Ag 4th Gen Combo NEGATIVE (NEGATIVE); Hep C Virus Ab w/Reflex Quant NEGATIVE s/c (NEGATIVE)
[2023-08-04 06:18] LABS: Specimen Label NATERA
[2023-08-04 08:53] LABS: RPR Screen Non Reactive (Non Reactive)
[2023-08-05 12:08] LABS: Varicella IgG Antibody 3140 index (Immune >165)
== END ==
LOC: LAB 15:01
PROVIDERS: Referring Provider Specialist; Visit Provider Specialist
DX: O09.299 Supervision of pregnancy with other poor reproductive or obstetric history, unspecified trimester (principal); Z86.32 Personal history of gestational diabetes
CPT/HCPCS: 36415; 80055; 82565; 83036; 84450; 84460; 84520; 84550; 86787; 86803; 86850; 86900; 86901; 87086; 87389

== ENCOUNTER → 2023-09-21 14:35 | Outpatient (CLI) | payer OTHER, SELFPAY ==
[2023-09-23 21:07] LABS: AFP, Serum 26.4 ng/mL (.); Estriol, Free 1.14 ng/mL (.); Inhibin A, Dimeric 122.27 pg/mL (.); Inhibin A, MoM 1.05 (.); Maternal Ethnicity Caucasian (.); Maternal Weight 242 lbs (.); Number of Fetuses No (.); OSBR Risk 1 IN 10000 (.); Results Report (.); Test Results *Screen Negative* (.); hCG, MoM 1.93 (.); hCG, Serum 48589 mIU/mL (.)
== END ==
PROVIDERS: Referring Provider Specialist; Visit Provider Specialist
DX: Z34.82 Encounter for supervision of other normal pregnancy, second trimester (principal); Z3A.17 17 weeks gestation of pregnancy
CPT/HCPCS: 36415; 82105; 82677; 84702; 86336

== ENCOUNTER → 2023-10-08 | Outpatient (CLI) | payer OTHER, SELFPAY ==
--- NOTE | 2023-10-08 15:11 | DI.US.S_ITS ---
PROCEDURE: US OB >= 14 WEEKS FETUS INDICATIONS: 20 Week Anatomy Scan OUTSIDE/PRIOR DATING DATA: Last menstrual period (LMP): 05/18/2023 LMP-based estimated date of delivery (GRACE): 02/28/2024. First dating scan (date and location): 07/27/2023. Estimated date of delivery (GRACE) from first dating scan: 03/01/2024 Working GRACE is 02/29/2024. TECHNIQUE: Real-time scanning was performed of the fetus, with image documentation and biometric measurements. COMPARISON: [facility], , OB <= 14 WEEKS FETUS, 07/27/2023, 15:38. [facility], , OB <= 14 WEEKS FETUS, 08/26/2023, 15:49. [facility], , US OB >= 14 WEEKS FETUS, 02/26/2021, 9:22. FINDINGS: General: A single living intrauterine gestation is present. Presentation: Transverse. Placenta: Placental position is posterior , without previa. Amniotic fluid index: 15.1 cm, normal range is 5-24 cm. Single deepest vertical pocket is 4.4 cm. heart rate: 158 beats per minute. Maternal cervical canal: 4 cm cm long. Normal lower limit is 2.5 cm. biometrics: Biparietal diameter: 19 weeks 1 Head circumference: 19 weeks 2 days Abdominal circumference: 21 weeks 1 day Femur length: 18 weeks 1 day Clinically estimated gestational age: 20 weeks 4 days Composite gestational age from present scan: 19 weeks 3 days Estimated weight and percentile: 308 g; 10th percentile Anatomic survey: Neuro: Suboptimally visualized. Nuchal skin fold: Suboptimally visualized. Face: Suboptimally visualized. Spine: No evidence for spina bifida. Heart: Suboptimally visualized. Diaphragm: Diaphragm is intact. Stomach: Left-sided stomach is present. Kidneys: Suboptimally visualized. Cord: 3-vessel cord has orthotopic insertion. Bladder: Normal in size. Extremities: All 4 extremities identified. IMPRESSION: 1. Single living IUP redemonstrated and interval growth is lower limits of normal with estimated weight 10th percentile. Follow-up recommended. 2. Limited anatomic survey and short-term follow-up is recommended. We strive to produce accurate, complete, and clear reports of imaging services. To assist us in improving patient care, this report was composed using standard report templates and voice recognition software. Therefore, it may contain abnormal punctuation, insertions and/or omissions. Occasional wrong-word or sound-alike substitutions may occur. Though we review the report and make efforts to correct it, we do recommend that the report be read carefully in proper context to recognize any text inaccuracies. Dictated by: Simon GARCIA Interpreted: Wilton Oscar MD on 10/08/2023 at 16:54 Approved by: Wilton Oscar M.D. on 10/21/2023 at 12:24
== END ==
PROVIDERS: Referring Provider Specialist; Visit Provider Specialist
DX: Z34.82 Encounter for supervision of other normal pregnancy, second trimester (principal); Z3A.19 19 weeks gestation of pregnancy
CPT/HCPCS: 76811

== ENCOUNTER → 2023-11-18 09:41 | Outpatient (CLI) | payer OTHER, SELFPAY ==
[2023-11-18 12:20] LABS: Hematocrit 35.5 % (36-46); Hemoglobin 11.8 g/dL (12.0-16.0)
[2023-11-18 12:45] LABS: GTT (PREG) 1 Hour PP 50gm Dose 196 mg/dL (76-139)
== END ==
LOC: LAB 09:42
PROVIDERS: Referring Provider Obstetrics & Gynecology; Visit Provider Obstetrics & Gynecology
DX: Z34.82 Encounter for supervision of other normal pregnancy, second trimester (principal); Z3A.26 26 weeks gestation of pregnancy
CPT/HCPCS: 36415; 82950; 85014; 85018; 86850

== ENCOUNTER → 2023-11-27 13:55 | Outpatient (CLI) | payer OTHER, SELFPAY ==
--- NOTE | 2023-12-01 08:32 | DIAB.GDA ---
Addendum entered by Christie Juarez 12/03/23 14:38: Phone call: feeling comfortable with injection. Will follow titration schedule from OB, increase to 14u Thursday if elevated and then up 2u q 2 days until <95mg/dl. Not necessarily interested in CGM at this time. Postprandial numbers in goal. F/u next week. Original Note: Initial Gestational Diabetes Assessment Name: Shira Segura Date: 11/27/23 Time: 210-325p Dx: Gestational Diabetes Provider: Delfin GRACE: 02/28/24 Weeks: 26-27 Ene presents for initial GDM visit. PMH of GDM with daughter two years ago, diet managed. PMH preeclampsia. Currently tx for HTN. Reports her main concern today is her FBG. States she has tried HS snacks, but FBG are persistently >100mg/dl. States she needs a refresher on CHO recs with GDM. Did see [facility] last for guidance. Prior to this her and her had been working on weight loss using low CHO diets and she reports a 47# loss. Daughter was 9# 2oz. States she feels her BG were pretty well managed during that and she is unsure if genetically she would have been LGA anyway. Does reports some elevated FBG with that . Ene is logging her BG and food intake. CHO intake for the day is below PIEROGI MAKER for (<175g). Also very worried about gaining too much weight during this , mostly due to expectations from a previous provider per report. Diet Recall: 830a: coffee with sf creamer and protein bar OR protein shake with small banana 1130a: ww toast with cheese, avocado, tomato and egg 230p: snap pea dried snack with cottage cheese 6p: pro, 1/2c quinoa, veggie water 40-80oz, + crystal light through the day Anthropometrics: Ht: 61 Wt: 252# 11/04/23 at OB visit Prepregnancy wt: 238# reported Physical Activity: walking 4-5 days per week 30-60 min, resistance training 2x per week Self-Monitoring Blood Glucose: Checking FBG and 2 hour pc. All FBG well above 95mg/dl. Most after meal readings in goal. Date Pre Post Pre Post Pre Post HS 11/22 118 124 100 111 11/23 122 119 104 114 11/24 123 99 114 106 11/25 117 108 101 116 11/26 117 96 Diabetes Medications: None Pertinent Labs: [id number] Nutrition Rx: Carbohydrates: Meal: 45-g lunch and dinner; 30g breakfast Snack: 15-30g Nutrition Diagnosis: Altered nutrition related lab value r/t GDM dx aeb recent OGTT Inadequate CHO intake for r/t worry about BG aeb pt report and food journal Food and nutrition related knowledge deficit r/t needing refresher on MNT with GDM aeb pt report Intervention: This participant was very receptive. Provided appropriate educational handouts. Discussed the following topics: GDM pathophysiology and impact of hyperglycemia on mom and baby Risk for T2DM for mom and baby in the future Ways to reduce risk T2DM Plate Method, meal timing, carb counting, pairing macronutrients and spreading out CHO for better BG management Blood glucose goals (FBG: <95 and 2 hour <120 mg/dL); importance of checking 4x per day (FBG and pc) Impact of macronutrients on blood glucose Recommended servings for carbohydrates at meals and snacks Brainstormed appropriate meal plan based on her food preferences Encouraged less emphasis on weight gain and more focus on healthy eating options and safe physical activity Reviewed insulin benefits with hyperglycemia in the morning, how to inject insulin, demo provided, brief review of hypoglycemia tx and s/s Role of physical activity and following provider guidelines for safety Goals: Try 9p paired snack Increase to 30g CHO at meals minimum (goal of 45g at lunch and dinner) Check pharmacy for rx of insulin and pen needles Follow-up: NUSRAT CARTER follow-up in two weeks. Sees OB next week. Christie Juarez RDN, RAUL Certified Diabetes Care and [employer] T: [phone] F: [phone] [email or web address] Thank you for this referral
== END ==
LOC: DIET 13:55
PROVIDERS: Referring Provider Obstetrics & Gynecology
DX: O24.419 Gestational diabetes mellitus in pregnancy, unspecified control (principal); Z3A.26 26 weeks gestation of pregnancy; Z71.3 Dietary counseling and surveillance
CPT/HCPCS: 97802

== ENCOUNTER → 2023-12-09 16:28 | Outpatient (CLI) | payer OTHER, SELFPAY ==
--- NOTE | 2023-12-09 17:17 | DIAB.GDFU ---
Addendum entered by Christie Juarez 12/23/23 14:08: Date: 12/09/23 Time: 440-510p Original Note: Follow-up Gestational Diabetes Assessment Name: Shira Segura Date: Time: Dx: Gestational Diabetes Provider: Delfin GRACE: 02/28/24 Weeks: 28 Ene presents for follow-up GDM visit. Up to 18u NPH HS. FBG continue >95 mg/dl. Following titration schedule of 2u q 2 days per OB. Aiming for 30g CHO per meal and 30g at snacks with most days carb intake reportedly at 120-175g CHO. Finding it difficulty to meet TRAUMA MANAGER for CHO. Aiming for 3 meals per day and 1-2 snack. Brought snack list and food journal for review. Adding veggies and fruit, moderate CHO, and pairing. Tearful today discussing feelings about wt gain during visit. Again reinforced to focus on healthy eating and safe activity vs number on scale. Reports disheartening visit with MFM with a provider that seemed to dismiss her, talk over her, etc. Plans to continue most of monitoring with OB at . Anthropometrics: Ht: 61 Wt: 252# 11/04/23 at OB visit Prepregnancy wt: 238# reported Physical Activity: walking 4-5 days per week 30-60 min, resistance training 2x per week Self-Monitoring Blood Glucose: Checking FBG and 2 hour pc, sometimes 1 or 1.5 hour. Most postprandial in range. All FBG continue above target. Not currently wanting CGM though will consider in the future prn. Date Pre Post Pre Post Pre Post HS 12/02 116 101 119 12/03 113 110 123 1.5h 12/04 131 122 118 12/05 116 99 78 132 1h 12/06 104 93 127 1.5h 91 7/2 106 122 114 115 7/3 100 118 83 Diabetes Medications: 18u NPH HS Pertinent Labs: Screen 196H Nutrition Rx: Carbohydrates: Meal: 45-g lunch and dinner; 30g breakfast Snack: 15-30g Nutrition Diagnosis: Altered nutrition related lab value r/t GDM dx aeb recent OGTT Inadequate CHO intake for r/t worry about BG aeb pt report and food journal- improved/in progress Food and nutrition related knowledge deficit r/t needing refresher on MNT with GDM aeb pt report - improved Intervention: This participant was very receptive. Provided appropriate educational handouts. Discussed the following topics: Recent blood sugar results and impact of food and hormones Review of macronutrient recommendations during and strategies to increase to TRAUMA MANAGER Potential for CGM if she wants Medication management: insulin titration Reinforced how well she is doing with lifestyle and documenting numbers and food Healthy coping with current diagnoses she is juggling and any worries she may have about wt. Goals: Try 9p paired snack- met Increase to 30g CHO at meals minimum (goal of 45g at lunch and dinner)- met Check pharmacy for rx of insulin and pen needles- met Increase to 20u tonight- new Increase CHO at lunch to 45g- new Follow-up: NUSRAT CARTER follow-up in two weeks for 1:1 and one week via messaging for FBG. Christie Juarez RDN, RAUL Certified Diabetes Care and [employer] T: [phone] F: [phone] [email or web address] Thank you for this referral
== END ==
DX: O24.414 Gestational diabetes mellitus in pregnancy, insulin controlled (principal); Z3A.28 28 weeks gestation of pregnancy; Z71.3 Dietary counseling and surveillance
CPT/HCPCS: 97803

== ENCOUNTER → 2023-12-23 13:46 | Outpatient (CLI) | payer OTHER, SELFPAY ==
--- NOTE | 2023-12-23 14:09 | DIAB.GDFU ---
Follow-up Gestational Diabetes Assessment Name: Shira Segura Date: 12/23/23 Time: 2-230p Dx: Gestational Diabetes Provider: Delfin GRACE: 02/28/24 Weeks: 30 Ene presents for follow-up GDM visit. Up to 34u NPH HS. FBG continue to be slightly >95 mg/dl. Following titration schedule of 2u q 2 days. Feeling some early satiety. Some discomfort with eating at this stage of . Diet Recall: 830-930a: Breakfast sandwich with coffee OR shake with banana (30g CHO) 1130-12: fruit and cottage cheese OR triscuits with cottage cheese OR leftovers 2-3p: pop chips OR harvest peas OR low sugar oatmeal OR eng muffin with pb OR carb master yogurt 6p: fijian toast ww with turkey mercado and eggs OR salmon, avocado burgers on ww bun with carrots 9p: nothing if tired OR same as earlier snack Water: 40oz 2-3x per day, coffee, sometimes crystal light Anthropometrics: Ht: 61 Wt: 252# 11/04/23 at OB visit Prepregnancy wt: 238# reported Physical Activity: walking 4-5 days per week 30-60 min, resistance training less lately Self-Monitoring Blood Glucose: Checking FBG and 2 hour pc. After meal numbers mostly in goal. FBG continue to be elevated. May need more aggressive titration. Date Pre Post Pre Post Pre Post HS 12/16 119 131 1 hr 108 123 12/17 106 102 123 117 12/18 132 98 103 121 Poor sleep night before 12/19 107 125 100 109 12/20 102 104 107 133 1.5 hr 12/21 108 103 81 107 12/22 99 132 1 hour Diabetes Medications: 34u NPH HS Pertinent Labs: Screen 196H Nutrition Rx: Carbohydrates: Meal: 45-g lunch and dinner; 30g breakfast Snack: 15-30g Nutrition Diagnosis: Altered nutrition related lab value r/t GDM dx aeb recent OGTT Inadequate CHO intake for r/t worry about BG aeb pt report and food journal- improved Food and nutrition knowledge deficit r/t needing additional ideas to combat early satiety in aeb pt report- new Intervention: This participant was very receptive. Provided appropriate educational handouts. Discussed the following topics: Recent blood sugar results and impact of food and hormones Strategies for early satiety, including smoothies with protein and complex CHO Titration of insulin for FBG: may need to increase to 3 u q 2-3 days Goals: Increase to 20u tonight- met Increase CHO at lunch to 45g- met Try smoothies with protein- new Increase 3u tonight and 2-3 thereafter if >95mg/dl FBG- new Message RD in one week FBG - new Follow-up: NUSRAT CARTER follow-up in one week via messaging and two weeks 1:1. Sees OB in one week. Christie Juarez RDN, [facility] Certified Diabetes Care and Paper Plate Machine Tender T: [phone] F: [phone] [email or web address] Thank you for this referral
== END ==
LOC: DIET 13:46
PROVIDERS: PCP Obstetrics & Gynecology; Referring Provider Obstetrics & Gynecology
DX: O24.414 Gestational diabetes mellitus in pregnancy, insulin controlled (principal); Z3A.30 30 weeks gestation of pregnancy; Z71.3 Dietary counseling and surveillance
CPT/HCPCS: 97803

== ENCOUNTER → 2023-12-30 15:41 | Outpatient (CLI) | payer OTHER, SELFPAY ==
[2023-12-30 16:56] LABS: HEMOLYSIS < 15 (0-50); Iron 62 ug/dL (37-170)
[2023-12-30 17:11] LABS: Transferrin 700 mg/dL (206-381)
[2023-12-30 17:25] LABS: Percent Iron Saturation 7 % (15-50); Total Iron Binding Capacity 868 ug/dL (265-497)
[2023-12-30 17:34] LABS: Ferritin 4 ng/mL (6-137)
== END ==
LOC: LAB 15:42
PROVIDERS: PCP Obstetrics & Gynecology; Referring Provider Specialist; Visit Provider Specialist
DX: O24.414 Gestational diabetes mellitus in pregnancy, insulin controlled (principal); I10 Essential (primary) hypertension; O99.013 Anemia complicating pregnancy, third trimester
CPT/HCPCS: 36415; 82728; 83540; 83550

== ENCOUNTER → 2024-01-01 15:38 | Outpatient (CLI) | payer OTHER, SELFPAY ==
[2024-01-01 17:36] LABS: Collection Time Urine 24 Hours; Protein (Total) Urine Random 9 mg/dL (0-12); Total Protein 24 Hour Urine 270 mg/day (42-225); Total Volume Urine 3000 mL
== END ==
PROVIDERS: PCP Obstetrics & Gynecology; Referring Provider Specialist; Visit Provider Specialist
DX: O24.414 Gestational diabetes mellitus in pregnancy, insulin controlled (principal); I10 Essential (primary) hypertension; O99.013 Anemia complicating pregnancy, third trimester
CPT/HCPCS: 84156

== ENCOUNTER 2024-01-05 15:50 | Outpatient (CLI) | payer OTHER, SELFPAY ==
--- NOTE | 2024-01-05 16:26 | P.TNLD_ITS ---
Visit Information Visit Information Date of evaluation: 01/05/24 On-call OB Provider: Mary Celestin Reason for Evaluation: Yes non-stress test Vital Signs Vital Signs: Initial BP severe range 166/87, then serial BPs mild range during remainder of triage visit [facility] Medical History (Updated 01/07/24 @ 09:26 by Mary Celestin DO) Irregular menstrual cycle Hypertension (~2018) Delivery by section using transverse incision of lower segment of uterus (~03/11/21) Diabetes mellitus affecting in first trimester Hypertension affecting in first trimester PCOS (polycystic ovarian syndrome) Chicken pox (~1991) Anemia (~2017) Liver disease (~2017) Surgical History (Updated 08/30/23 @ 19:43 by Sandie Lenz MD) History of tonsillectomy and adenoidectomy History of skin surgery Anesthesia Status post appendectomy (~1994) Family History (Updated 06/23/23 @ 15:21 by Vanessa Cook RN) Brother Age: 30 Type 1 diabetes Father Sperm donor Family estrangement Grandfather Malignant neoplasm of colon, unspecified part of colon Diabetes mellitus Grandmother Heart disease Mother Age: 62 Essential hypertension Depression Hyperlipidemia Grandmother Stroke Dementia Social History marital status: number of children: 3 (2 part-time stepchildren) household members: spouse and children lives independently: Yes caregiver/support person: Yes housing: house pets and animals: Yes (Dog & 1 rabbit.) education level: college (bachelor's degree) 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) current occupational exposures/hazards: No special iliana needs: No travel history: over 6 months ago seatbelt use: always helmet use: Yes water heater temp set < 120 deg: Yes working smoke detector in home: Yes fire extinguisher in home: Yes carbon monox detector in home: Yes firearms in home: No do you feel safe at home: Yes Smoking Status: Never smoker second hand exposure: No alcohol intake: former (rarely when not ) substance use type: does not use during the past year weight has: decreased > 10 lbs (intentional w/ diet and exercise) well-balanced diet: daily or most days daily servings fruits/ve or more times/day caffeine: Yes (1-2 cups ) Type(s) of exercise: walking and regular exercise frequency: daily duration: 30-45 minutes/day Evaluation Evaluation Baseline heart rate: 150 Variability: Moderate (11-25) monitor accelerations: Present Monitor Decelerations: Absent Contraction Frequency (minutes): 0 Category of Tracing: Reactive Diagnosis, Plan/Disposition Final Diagnosis (1) Chronic hypertension affecting : Status: Acute Plan/Disposition Plan: Noted to have severe range BP upon presentation, however remainder of blood pressures during monitoring were mild range. Pt denied symptoms of pre-e at that time. She reported taking her BP at home 4 times daily, with normal-mild range values. -no medication adjustments today -pt given precautions and reasons to call -f/u as scheduled OB Disposition: home
== END 2024-01-05 16:32 | disposition home or self-care (01) ==
LOC: LABOR 16:31 → OB 01-06 09:20
PROVIDERS: PCP Obstetrics & Gynecology; Referring Provider Obstetrics & Gynecology; Visit Provider Obstetrics & Gynecology
DX: O16.3 Unspecified maternal hypertension, third trimester (principal); Z3A.32 32 weeks gestation of pregnancy
CPT/HCPCS: 59025; G0378; G0379

== ENCOUNTER → 2024-01-06 13:50 | Outpatient (CLI) | payer OTHER, SELFPAY ==
--- NOTE | 2024-01-06 13:55 | DIAB.GDFU ---
Follow-up Gestational Diabetes Assessment Name: Shira Segura Date: 01/06/24 Time: 2-220p Dx: Gestational Diabetes Provider: Delfin GRACE: 02/28/24 Weeks: 32 Ene presents for follow-up GDM visit. Up to 52u NPH HS. Denies any low BG or low symptoms. Reviewed food journal. Eating balanced CHO/Pro meals and snacks. Having snacks in afternoon and HS. Having smoothies with protein, as discussed last visit. Adequate fruit and veggies. Taking PNV with iron. Had some slight low Hct and Hgb labs recently. Sees Delfin next Thursday. Anthropometrics: Ht: 61 Wt: 257# 12/30/23 at OB visit 252# 11/04/23 at OB visit Prepregnancy wt: 238# reported Physical Activity: walking 4-5 days per week 30-60 min. Stopped resistance training due to schedule. Self-Monitoring Blood Glucose: Checking FBG and 2 hour pc. After meal numbers mostly in goal. FBG much improved with most in goal. May benefit from slight increase by 1u NPH. Encouraged her to see how next few morning BG go. Date Pre Post Pre Post Pre Post HS 12/30 99 102 120 117 12/31 83 124 111 113 52u last night 01/01 91 111 113 118 01/02 93 112 118 112 01/03 96 109 105 01/04 86 113 115 118 01/05 97 105 Diabetes Medications: 52u NPH HS Pertinent Labs: Screen 196H Nutrition Rx: Carbohydrates: Meal: 45-g lunch and dinner; 30g breakfast Snack: 15-30g Nutrition Diagnosis: Altered nutrition related lab value r/t GDM dx aeb recent OGTT Food and nutrition knowledge deficit r/t needing additional ideas to combat early satiety in aeb pt report- improved Intervention: This participant was very receptive. Provided appropriate educational handouts. Discussed the following topics: Recent blood sugar results and impact of food and hormones Meal timing and pairing Iron foods and pairing with vit c Titration of insulin for FBG: may need to increase 0-1 u over the next 2-3 days Goals: Try smoothies with protein- met Increase 3u tonight and 2-3 thereafter if >95mg/dl FBG- met Message RD in one week FBG - met Add spinach to smoothie- new If having FBG >95, increase NPH by 1u- new Follow-up: RDN CDCES follow-up in three weeks or sooner if BG increase or have nutrition questions. Sees OB next week. Christie Juarez RDN, ANTONETTE Certified Diabetes Care and Aeronautical Engineering Professor T: [phone] F: [phone] [email or web address] Thank you for this referral
== END ==
PROVIDERS: PCP Obstetrics & Gynecology; Referring Provider Obstetrics & Gynecology
DX: O24.414 Gestational diabetes mellitus in pregnancy, insulin controlled (principal); Z3A.32 32 weeks gestation of pregnancy; Z71.3 Dietary counseling and surveillance
CPT/HCPCS: 97803

== ENCOUNTER 2024-01-08 15:55 | Outpatient (CLI) | payer OTHER, SELFPAY | END 2024-01-08 17:08 | disposition home or self-care (01) | LOC: OB 01-11 09:08 | PROVIDERS: PCP Obstetrics & Gynecology; Referring Provider Obstetrics & Gynecology; Visit Provider Obstetrics & Gynecology | DX: O24.913 Unspecified diabetes mellitus in pregnancy, third trimester (principal); O13.3 Gestational [pregnancy-induced] hypertension without significant proteinuria, third trimester; Z3A.32 32 weeks gestation of pregnancy | CPT/HCPCS: 59025; G0378; G0379 ==

== ENCOUNTER 2024-01-12 15:59 | Outpatient (CLI) | payer OTHER, SELFPAY | END 2024-01-12 17:15 | disposition home or self-care (01) | LOC: LABOR 17:06 → OB 01-14 12:32 | PROVIDERS: PCP Obstetrics & Gynecology; Referring Provider Obstetrics & Gynecology; Visit Provider Obstetrics & Gynecology | DX: O13.3 Gestational [pregnancy-induced] hypertension without significant proteinuria, third trimester (principal); O24.913 Unspecified diabetes mellitus in pregnancy, third trimester; Z79.4 Long term (current) use of insulin; Z3A.33 33 weeks gestation of pregnancy | CPT/HCPCS: 59025; G0378; G0379 ==

== ENCOUNTER 2024-01-15 16:12 | Outpatient (CLI) | payer OTHER, SELFPAY | END 2024-01-15 17:10 | disposition home or self-care (01) | LOC: LABOR 16:26 → OB 01-19 12:23 | PROVIDERS: Referring Provider Obstetrics & Gynecology; Visit Provider Obstetrics & Gynecology | DX: O24.913 Unspecified diabetes mellitus in pregnancy, third trimester (principal); O13.3 Gestational [pregnancy-induced] hypertension without significant proteinuria, third trimester; Z79.4 Long term (current) use of insulin | CPT/HCPCS: 59025; G0378; G0379 ==

== ENCOUNTER 2024-01-18 15:52 | Outpatient (CLI) | payer OTHER, SELFPAY | END 2024-01-18 16:50 | disposition home or self-care (01) | LOC: OB 01-19 12:28 | PROVIDERS: Referring Provider Obstetrics & Gynecology; Visit Provider Obstetrics & Gynecology | DX: O24.414 Gestational diabetes mellitus in pregnancy, insulin controlled (principal); O13.3 Gestational [pregnancy-induced] hypertension without significant proteinuria, third trimester; Z3A.34 34 weeks gestation of pregnancy | CPT/HCPCS: 59025; G0378; G0379 ==

== ENCOUNTER 2024-01-21 15:53 | Observation (INO) | payer OTHER, SELFPAY | END 2024-01-21 16:48 | disposition home or self-care (01) | PROVIDERS: Admitting Provider Obstetrics & Gynecology; Referring Provider Obstetrics & Gynecology; Visit Provider Obstetrics & Gynecology | DX: O24.913 Unspecified diabetes mellitus in pregnancy, third trimester (principal); O13.3 Gestational [pregnancy-induced] hypertension without significant proteinuria, third trimester; Z3A.34 34 weeks gestation of pregnancy; Z79.4 Long term (current) use of insulin | CPT/HCPCS: 59025; G0378; G0379 ==

== ENCOUNTER 2024-01-26 15:54 | Outpatient (CLI) | payer OTHER, SELFPAY | END 2024-01-26 16:40 | disposition home or self-care (01) | LOC: OB 01-28 06:24 | PROVIDERS: Referring Provider Obstetrics & Gynecology; Visit Provider Obstetrics & Gynecology | DX: O24.913 Unspecified diabetes mellitus in pregnancy, third trimester (principal); O13.3 Gestational [pregnancy-induced] hypertension without significant proteinuria, third trimester; Z79.4 Long term (current) use of insulin | CPT/HCPCS: 59025; G0378; G0379 ==

== ENCOUNTER → 2024-01-27 13:56 | Outpatient (CLI) | payer OTHER, SELFPAY ==
--- NOTE | 2024-01-27 14:01 | DIAB.GDFU ---
Follow-up Gestational Diabetes Assessment Name: Shira Segura Date: 01/27/24 Time: 2-220p Dx: Gestational Diabetes Provider: Delfin GRACE: 02/28/24 Weeks: 35 Ene presents for follow-up GDM visit. Plans for c section on 02/11/24. Up to 57u NPH HS. Reports one low BG of 64mg/dl. States she is unsure why she had the low. [place] fatigue. Ate cereal and BG improved. Some early satiety. Trying to sub smoothies and protein shakes for nutrition. Added spinach to smoothies as discussed last visit. Difficulty with with daughter, plans to try pumping and formula. States she feels it was stressful to try and breastfeed exclusively. Plans to go back to weight watchers diet , which she had lost 50# from prior to . still on this diet successfully. Anthropometrics: Ht: 61 Wt: 257# 01/15/24 at OB Visit 257# 12/30/23 at OB visit 252# 11/04/23 at OB visit Prepregnancy wt: 238# reported Physical Activity: walking 4-5 days per week 30-60 min. Self-Monitoring Blood Glucose: Checking FBG and 2 hour pc. Increasing insulin if FBG are above 95 two mornings in a row. Increasing by one unit. Date Pre Post Pre Post Pre Post HS 01/20 96 105 107 108 / 100 101 115 01/22 91 102 112 118 01/23 84 125 1.5 hour 104 105 01/24 101 102 110 01/25 83 104 111 117 01/26 91 104 115 Diabetes Medications: 57u NPH HS Pertinent Labs: Screen 196H Nutrition Rx: Carbohydrates: Meal: 45-g lunch and dinner; 30g breakfast Snack: 15-30g Nutrition Diagnosis: Altered nutrition related lab value r/t GDM dx aeb recent OGTT Food and nutrition knowledge deficit r/t needing additional ideas to combat early satiety in aeb pt report- improved Food and nutrition knowledge deficit r/t needing Rule of 15 education for lows aeb pt report- new Intervention: This participant was very receptive. Provided appropriate educational handouts. Discussed the following topics: Recent blood sugar results and impact of food and hormones Review of macronutrient recommendations during Benefits, resources, and nutrition for /pumping recommendations for nutrition and physical activity recommendations for T2DM risk reduction OGTT at 6-12 weeks Checking blood sugars twice per week (goal: fasting <100 mg/dL and 2 hour pc <140 mg/dL) until 6 week check-up HgA1c q 1-3 years. Encouraged visit prn Early satiety nutrition recommendations RUle of 15 for low BG Goals: Add spinach to smoothie- met If having FBG >95, increase NPH by 1u- met Follow nutrition recs- new Follow DM risk reduction tips discussed-new Follow-up: NUSRAT CARTER follow-up prn. Christie Juarez RDN, RAUL Certified Diabetes Care and Talent Assistant T: [phone] F: [phone] [email or web address] Thank you for this referral
== END ==
LOC: DIET 13:57
PROVIDERS: Referring Provider Obstetrics & Gynecology
DX: O24.414 Gestational diabetes mellitus in pregnancy, insulin controlled (principal); Z3A.35 35 weeks gestation of pregnancy; Z71.3 Dietary counseling and surveillance
CPT/HCPCS: 97803

== ENCOUNTER 2024-01-29 16:34 | Outpatient (CLI) | payer OTHER, SELFPAY | END 2024-01-29 17:43 | disposition home or self-care (01) | LOC: OB 02-02 06:17 | PROVIDERS: Referring Provider Obstetrics & Gynecology; Visit Provider Obstetrics & Gynecology | DX: O60.03 Preterm labor without delivery, third trimester (principal); O24.913 Unspecified diabetes mellitus in pregnancy, third trimester; O36.8130 Decreased fetal movements, third trimester, not applicable or unspecified; O13.3 Gestational [pregnancy-induced] hypertension without significant proteinuria, third trimester; Z79.4 Long term (current) use of insulin; Z3A.35 35 weeks gestation of pregnancy | CPT/HCPCS: 59025; 87653; G0378; G0379 ==

== ENCOUNTER → 2024-01-29 16:40 | Outpatient (CLI) | payer OTHER, SELFPAY ==
[2024-01-30 14:44] LABS: Strep Grp B PCR POS for Grp B Strep
== END ==
PROVIDERS: Visit Provider Obstetrics & Gynecology
DX: Z34.83 Encounter for supervision of other normal pregnancy, third trimester (principal); Z3A.35 35 weeks gestation of pregnancy
CPT/HCPCS: 87653

== ENCOUNTER 2024-02-02 15:52 | Outpatient (CLI) | payer OTHER, SELFPAY | END 2024-02-02 16:36 | disposition home or self-care (01) | LOC: OB 02-03 09:43 | PROVIDERS: Referring Provider Obstetrics & Gynecology; Visit Provider Obstetrics & Gynecology | DX: O24.913 Unspecified diabetes mellitus in pregnancy, third trimester (principal); O13.3 Gestational [pregnancy-induced] hypertension without significant proteinuria, third trimester; Z3A.36 36 weeks gestation of pregnancy; Z79.4 Long term (current) use of insulin | CPT/HCPCS: 59025; G0378; G0379 ==

== ENCOUNTER 2024-02-05 16:35 | Outpatient (CLI) | payer OTHER, SELFPAY ==
--- NOTE | 2024-02-05 17:37 | PM.OBTRLD ---
Visit Information Visit Information Date of evaluation: 02/05/24 Primary OB Provider: Sandie Lenz On-call OB Provider: Sandie Lenz Reason for Evaluation: Yes non-stress test non-stress test reason: diabetes and hypertension/pre-eclampsia [facility], [facility] Medical History (Updated 01/07/24 @ 09:26 by Mary Celestin DO) Irregular menstrual cycle Hypertension (~2018) Delivery by section using transverse incision of lower segment of uterus (~03/11/21) Diabetes mellitus affecting in first trimester Hypertension affecting in first trimester PCOS (polycystic ovarian syndrome) Chicken pox (~1991) Anemia (~2017) Liver disease (~2017) Surgical History (Updated 08/30/23 @ 19:43 by Sandie Lenz MD) History of tonsillectomy and adenoidectomy History of skin surgery Anesthesia Status post appendectomy (~1994) Family History (Updated 06/23/23 @ 15:21 by Vaenssa Cook RN) Brother Age: 30 Type 1 diabetes Father Sperm donor Family estrangement Grandfather Malignant neoplasm of colon, unspecified part of colon Diabetes mellitus Grandmother Heart disease Mother Age: 62 Essential hypertension Depression Hyperlipidemia Grandmother Stroke Dementia Social History marital status: number of children: 3 (2 part-time stepchildren) household members: spouse and children lives independently: Yes caregiver/support person: Yes housing: house pets and animals: Yes (Dog & 1 rabbit.) education level: college (bachelor's degree) 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) current occupational exposures/hazards: No special iliana needs: No travel history: over 6 months ago seatbelt use: always helmet use: Yes water heater temp set < 120 deg: Yes working smoke detector in home: Yes fire extinguisher in home: Yes carbon monox detector in home: Yes firearms in home: No do you feel safe at home: Yes Smoking Status: Never smoker second hand exposure: No alcohol intake: former (rarely when not ) substance use type: does not use during the past year weight has: decreased > 10 lbs (intentional w/ diet and exercise) well-balanced diet: daily or most days daily servings fruits/ve or more times/day caffeine: Yes (1-2 cups ) Type(s) of exercise: walking and regular exercise frequency: daily duration: 30-45 minutes/day Evaluation Evaluation Baseline heart rate: 140 Variability: Moderate (11-25) monitor accelerations: Present Monitor Decelerations: Absent Diagnosis, Plan/Disposition Plan/Disposition Plan: Assessment: 33 year old at 36+5 with GDM A2 and Gestational HTN on Labetolol Reactive NST Plan: D/C to home F/U 4 days for NST R C/S planned for 02/11/24
== END 2024-02-05 17:35 | disposition home or self-care (01) ==
LOC: LABOR 16:38 → OB 02-09 07:25
PROVIDERS: Referring Provider Obstetrics & Gynecology; Visit Provider Obstetrics & Gynecology
DX: O24.419 Gestational diabetes mellitus in pregnancy, unspecified control (principal); O13.3 Gestational [pregnancy-induced] hypertension without significant proteinuria, third trimester; Z3A.36 36 weeks gestation of pregnancy
CPT/HCPCS: 59025; G0378; G0379

== ENCOUNTER 2024-02-09 15:52 | Outpatient (CLI) | payer OTHER, SELFPAY | END 2024-02-09 16:30 | disposition home or self-care (01) | LOC: OB 02-16 07:58 | PROVIDERS: Referring Provider Obstetrics & Gynecology; Visit Provider Obstetrics & Gynecology | DX: O24.414 Gestational diabetes mellitus in pregnancy, insulin controlled (principal); O13.3 Gestational [pregnancy-induced] hypertension without significant proteinuria, third trimester; Z3A.37 37 weeks gestation of pregnancy | CPT/HCPCS: 59025; G0378; G0379 ==

== ENCOUNTER 2024-02-11 05:33 | Inpatient (IN) | payer OTHER, SELFPAY ==
[2024-02-11] VITALS (15 sets, daily range): BP systolic 132–170; BP diastolic 68–97; PULSE 62–92; RESP 16–22; TEMP 36.7–36.8; O2SAT 96–99
[2024-02-11 06:27] LABS: Add Manual Diff / Slide Review NO; Basophils Absolute Auto 0 /uL (0-100); Basophils Percent Auto 0.3 % (0-2); Eosinophils Absolute Auto 100 /uL (0-450); Eosinophils Percent Auto 0.9 % (2-4); Hematocrit 35.2 % (36-46); Hemoglobin 11.6 g/dL (12.0-16.0); Lymphocytes Absolute Auto 2000 /uL (1100-4500); Lymphocytes Percent Auto 20.6 % (25-40); Mean Corpuscular HGB Conc 32.8 % (30-36); Mean Corpuscular Hemoglobin 24.7 PG (26-34); Mean Corpuscular Volume 75.2 fL (80-100); Monocytes Absolute Auto 800 /uL (0-900); Monocytes Percent Auto 7.9 % (3-14); Neutrophils Absolute Auto 6700 /uL (1500-7000); Neutrophils Percent Auto 70.3 % (50-75); Platelet Count 239 X10^3/uL (150-400); Red Blood Cell Count 4.69 X10^6/uL (4.0-5.2); Red Cell Distribution Width 14.7 % (11.6-14.8); White Blood Cell Count 9.6 X10^3/uL (4.5-11.0)
[2024-02-11] MEDS: LACTATED RINGERS 1,000 ML 999 ML IV ×2 (06:30→08:38)
--- NOTE | 2024-02-11 07:44 | PM.OBHP.IH.1 ---
OB HPI Date/Time Date of admission: 02/11/24 Date Patient Seen: 02/11/24 Time Patient Seen: 07:44 History of Present Condition Chief complaint: INPT C SECTION GRACE Calculator Estimated Delivery Date Method Current WG Current Estimate 02/28/24 LMP (Certain) 37w 4d Other Estimates 03/01/24 Ultrasound #1 37w 2d Estimated Gestational Age (weeks): 37+4 : 2 Para: 1 care: good care, initiated at week # (9), number of visits (7) and pounds weight gain (22) Dating criteria OB: LMP confirmed by 1st trimester US Ultrasounds: normal 1st trimester US and normal mid trimester US Obstetrical complications: gestational diabetes and gestational hypertension Medical complications OB: none Indications Operative indications ( section): previous uterine surgery Preadmission Labs Last OB Lab Results: Blood Type A Negative 02/11/24 06:12 Antibody Screen Negative 11/18/23 10:47 Hct 35.2 % (36-46) L 02/11/24 06:12 Hgb 11.6 g/dL (12.0-16.0) L 02/11/24 06:12 Hep Bs Antigen Negative s/c (NEGATIVE) 08/03/23 15:38 Hepatitis C Antibody Negative s/c (NEGATIVE) 08/03/23 15:38 Rubella Antibody 24.9 IU/mL (>15) 08/03/23 15:38 VZV IgG Antibody 3140 index (Immune >165) 08/03/23 15:38 Glucose 1 Hr 50 gm 196 mg/dL (76-139) H 11/18/23 10:47 Hemoglobin A1c 5.9 % (4.0-6.0) 08/03/23 15:38 Group B Strep (PCR) Pos for grp b strep H 01/29/24 16:35 -: Chlamydia screen: negative, Gonorrhea screen: negative and Urine: negative -: PAP smear: Normal Genetic Screens: Quad screen: Normal External Labs -: Urine: negative Prior (ies) Past Pregnancies Del. Date GA/Weeks Labor Lgth Wt Sex Route Outcome Anesthesia Place Delv Breastfeed Preg Comp Name 03/11/21 38.4 12 9 lb 2 oz Female live - full term epidural IH Attempted, pumped x3 months pre-eclampsia gestational diabetes macrosomia other Candy Delivery Date: 03/11/21 Last Updated by: Vanessa Cook RN early 2nd trimester PARESH Evaluation Evaluation Baseline heart rate: 135 Variability: Moderate (11-25) monitor accelerations: Present Monitor Decelerations: Absent Contraction Frequency (minutes): 0 Category of Tracing: Reactive Status: Category l PFSH Medical History (Updated 02/10/24 @ 23:33 by Sandie Lenz MD) Irregular menstrual cycle Hypertension (~2018) Delivery by section using transverse incision of lower segment of uterus (~03/11/21) Diabetes mellitus affecting in first trimester Hypertension affecting in first trimester PCOS (polycystic ovarian syndrome) Chicken pox (~1991) Anemia (~2017) Liver disease (~2017) Surgical History (Updated 08/30/23 @ 19:43 by Sandie Lenz MD) History of tonsillectomy and adenoidectomy History of skin surgery Anesthesia Status post appendectomy (~1994) Family History (Updated 06/23/23 @ 15:21 by Vanessa Cook RN) Brother Age: 30 Type 1 diabetes Father Sperm donor Family estrangement Grandfather Malignant neoplasm of colon, unspecified part of colon Diabetes mellitus Grandmother Heart disease Mother Age: 62 Essential hypertension Depression Hyperlipidemia Grandmother Stroke Dementia Social History marital status: number of children: 3 (2 part-time stepchildren) household members: spouse and children lives independently: Yes caregiver/support person: Yes housing: house pets and animals: Yes (Dog & 1 rabbit.) education level: college (bachelor's degree) 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[employer]) current occupational exposures/hazards: No special iliana needs: No travel history: over 6 months ago seatbelt use: always helmet use: Yes water heater temp set < 120 deg: Yes working smoke detector in home: Yes fire extinguisher in home: Yes carbon monox detector in home: Yes firearms in home: No do you feel safe at home: Yes Smoking Status: Never smoker second hand exposure: No alcohol intake: former (rarely when not ) substance use type: does not use during the past year weight has: decreased > 10 lbs (intentional w/ diet and exercise) well-balanced diet: daily or most days daily servings fruits/ve or more times/day caffeine: Yes (1-2 cups ) Type(s) of exercise: walking and regular exercise frequency: daily duration: 30-45 minutes/day Meds Home Medications and Allergies Home Medications Medication Instructions Recorded Confirmed Type prenat.vits,ramya,jwq-xogi-plkot 1 tab PO DAILY 08/03/20 02/05/24 History nystatin 100,000 unit/gram topical 1 applic topical BID #60 grams 07/27/23 02/05/24 Rx powder blood sugar diagnostic (Blood #120 ea 11/18/23 02/05/24 Rx Glucose Test strips) blood-glucose meter (Blood Glucose #1 ea 11/18/23 02/05/24 Rx Monitoring kit) lancets #120 ea 11/18/23 02/05/24 Rx pen needle, diabetic 29 gauge x #100 ea 11/30/23 02/05/24 Rx 1/2 (Ultra-Thin II Insulin Pen [place]) aspirin 81 mg tablet,delayed 81 mg 01/21/24 02/05/24 History release insulin NPH isoph U-100 human 100 56 unit SUBCUT .HS gestational 01/21/24 02/05/24 History unit/mL (3 mL) subcutaneous pen diabetes (Humulin N NPH U-100 Insulin KwikPen) fluconazole 100 mg tablet 100 mg PO DAILY #10 tabs 01/29/24 02/05/24 Rx labetalol 100 mg tablet 200 mg PO TID 01/29/24 02/05/24 History labetalol 200 mg tablet 200 mg PO TID #90 tabs 01/29/24 02/05/24 Rx nystatin-triamcinolone 100,000 1 applic topical BID #60 grams 01/29/24 02/05/24 Rx unit/gram-0.1 % topical ointment Allergies Allergy/AdvReac Type Severity Reaction Status Date / Time oxycodone [OXYCODONE] Allergy Intermediate Rash Verified 02/05/24 16:09 OB Exam Narrative Exam Narrative: HEENT: [No thyromegaly, no anterior cervical or supraclavicular lymphadenopathy.] Lungs:[Clear to auscultation bilaterally, no wheezes.] Cardiovascular: [Regular rate and rhythm, no murmurs, rubs, or gallops]. Abdomen: [Well-healed Pfannenstiel scar. No hepatosplenomegaly. No masses palpable.] Multiple skin tags. Fundal height: 42 cm Estimated weight: 7 lb Extremities: 1+ edema Objective Labs 02/11/24 06:12 Labs: Laboratory Results - last 24 hr 02/11/24 06:12 WBC 9.6 RBC 4.69 Hgb 11.6 L Hct 35.2 L MCV 75.2 L MCH 24.7 L MCHC 32.8 RDW 14.7 Plt Count 239 Neut % (Auto) 70.3 Lymph % (Auto) 20.6 L [place] % (Auto) 7.9 Eos % (Auto) 0.9 L Baso % (Auto) 0.3 Neut # (Auto) 6700 Lymph # (Auto) 2000 [place] # (Auto) 800 Eos # (Auto) 100 Baso # (Auto) 0 Blood Type A Negative Assessment and Plan Assessment and Plan Assessment and Plan narrative: Assessment: 33-year-old 2 para 1 at 37 +4/7 weeks gestation Gestational hypertension requiring insulin Chronic hypertension Previous section Abdominal skin tags Plan: Repeat low-transverse section Removal of skin tags The risks, benefits, and alternatives were explained to the patient. The risks including bleeding, infectiion, injury to the bowel, bladder, or ureters. She understands these risks and agrees to proceed. A full PAR-Q was held and consent form was signed. Time-Based Coding :: [TOTAL MINUTES] spent with patient and on the chart (including review of chart, obtaining history, exam, reviewing outside data, placing orders, documenting exam and treatment plan, and counseling patient) on [DATE].
[2024-02-11] MEDS: CITRIC ACID/SODIUM CITRATE 15 ML SOLUTION 30 ML PO (07:49)
--- NOTE | 2024-02-11 07:56 | PM.PREOP ---
Pre-operative Note Interval Note History & Physical reviewed/Exam performed by Physician: Yes Changes to H&P: No H&P completed within 30 days and has changed as indicated here:: 02/11/24
[2024-02-11] MEDS: CEFAZOLIN VIAL 3 GM in SODIUM CHLORIDE 0.9% 100 ML IV (08:07)
[2024-02-11] MEDS: ACETAMINOPHEN IV 1,000 MG/100 ML VIAL 400 MG IV (08:43)
--- NOTE | 2024-02-11 08:59 | SUR.OPER ---
CHELLE CHILEL NURSING AIDE IN ROOM. VIABLE BABY AT 0840
--- NOTE | 2024-02-11 09:35 | P.OP_ITS ---
Operative Date/Time/Diagnoses Date of procedure: 02/11/24 Time of procedure: 09:35 Pre-op diagnosis: 37+ 4/7 weeks gestation Gestational diabetes requiring insulin Chronic hypertension Previous sections Post-op diagnosis: same Procedure & Clinicians Procedure: Repeat low-transverse section Same procedure as scheduled: Yes Indications: 33-year-old 2 para 1 at 37 and 4/7 weeks gestation with a previous section. Gestational diabetes requiring 57 units of insulin at bedtime Chronic hypertension on labetalol 200 mg t.i.d. Surgeon: Sandie Lenz Click Yes if Unassisted: No Client Retention Specialist: Mary Celestin Reason for Client Retention Specialist: The assistant professor of economics was necessary to retract upon entry into the abdomen and uterus. She assisted with fundal pressure with delivery of the . She assisted with closure with retraction, clipping of suture, and closure of the contralateral fascia. Anesthesia Type: Spinal (With Duramorph) Operative Notes Findings: Live female infant in the GEE presentation Loose nuchal cord x1 Normal uterus, tubes, and ovaries Closure Type: primary Specimen(s): cord blood and placenta Intraoperative meds administered: Acetaminophen, Duramorph, Ketorolac and Pitocin Applied: Catheter (To continuous drainage) Estimated Blood Loss (mL): 100 Blood products transfused: none Procedure in detail: The patient was taken to the operating room where she was placed in the seated position. After adequate spinal anesthesia with Duramorph was administered, she was placed in the dorsal supine position with a leftward tilt, and prepped and draped in the usual sterile fashion. A time-out was performed. After spinal anesthesia was found to be adequate, a Pfannenstiel skin incision was made through the previous incision and carried through to the underlying layer of fascia. The fascia was nicked in the midline and the incision extended bilaterally with the Sapp scissors. The superior aspect of the fascial incision was grasped with the Tova clamps, elevated, and the underlying fascia was dissected off bluntly and with the Bovie. Attention was then turned to the inferior aspect of this incision, which in a similar fashion was grasped with a Tova, elevated, and the underlying fascia was dissected off using blunt dissection and the Bovie. The peritoneum was identified, grasped between 2 hemostats, and entered sharply with the Metzenbaum scissors. This incision was extended superiorly and inferiorly with good visualization of the bladder. The incision was extended bluntly. Things were found to still be tight. Using the Bovie, the incision was extended slightly on both sides. The large Narendra was placed into the incision. The vesicouterine peritoneum was identified, grasped with a pickup, and entered sharply with the Metzenbaum scissors. This incision was extended bilaterally, and a bladder flap created digitally. A bladder blade was inserted. The lower uterine segment was incised in a transverse fashion. Upon entering the amniotic sac there was copious clear amniotic fluid. This incision was extended bluntly. The 's head was delivered without difficulty. A loose nuchal cord x1 was reduced. The remainder of the body delivered without difficulty and was wrapped in a towel. The nose and mouth were suctioned with bulb suction. After 1 minute, the cord was double clamped and cut. Cord bloods were obtained. The placenta was delivered by expression. The uterus was cleared of all clots and debris. The uterine incision was closed with 1. Chromic in a running interlocking fashion, and a second layer of the same suture was used for an imbricating layer. Hemostasis was achieved. The tubes and ovaries were examined and were found to be normal. The Narendra was removed from the incision. The peritoneum was closed using 2-0 Vicryl in a running fashion. The fascia was reapproximated using 0 Vicryl in a running fashion. Hemostasis was achieved in the subcutaneous layer using the Bovie. The subcutaneous layer was copiously irrigated with warm normal saline. Five simple interrupted sutures with 3-0 Vicryl were placed to reapproximate the subcutaneous layer. The skin was closed with 4-0 Monocryl in a subcuticular fashion. Steri-Strips were placed. An Aquacel dressing was placed. The uterus was expressed of a small amount of old blood. Sponge, lap, and instrument counts were correct x2. The patient tolerated the procedure well, and was taken to PACU in stable condition. Complications: none [place] Baby 1: Gender: Female Presentation: vertex Position: Left Occiput Anterior Placental Delivery Description: Expressed Cord Vessel Description: Nuchal Cord (x1) score (1 min): 6 score (5 min): 8 weight: 6 lb 13.3 oz Post-operative Condition: stable Disposition: PACU Aftercare: routine postop
[2024-02-11] MEDS: LABETALOL 20 MG/4 ML SYRINGE 10 MG IV ×2 (09:40→09:58)
[2024-02-11] MEDS: HYDRALAZINE 20 MG/ML VIAL 5 MG IV ×2 (10:09→10:35)
[2024-02-11] MEDS: LABETALOL 100 MG TABLET 200 MG PO ×3 (10:12→21:47)
[2024-02-11 10:49] LABS: Add Manual Diff / Slide Review NO; Basophils Absolute Auto 100 /uL (0-100); Basophils Percent Auto 1.3 % (0-2); Eosinophils Absolute Auto 0 /uL (0-450); Eosinophils Percent Auto 0.2 % (2-4); Hematocrit 37.4 % (36-46); Hemoglobin 12.2 g/dL (12.0-16.0); Lymphocytes Absolute Auto 900 /uL (1100-4500); Lymphocytes Percent Auto 8.9 % (25-40); Mean Corpuscular HGB Conc 32.5 % (30-36); Mean Corpuscular Hemoglobin 24.4 PG (26-34); Mean Corpuscular Volume 75.2 fL (80-100); Monocytes Absolute Auto 200 /uL (0-900); Monocytes Percent Auto 2.1 % (3-14); Neutrophils Absolute Auto 8900 /uL (1500-7000); Neutrophils Percent Auto 87.5 % (50-75); Platelet Count 237 X10^3/uL (150-400); Red Blood Cell Count 4.98 X10^6/uL (4.0-5.2); Red Cell Distribution Width 14.8 % (11.6-14.8); White Blood Cell Count 10.2 X10^3/uL (4.5-11.0)
[2024-02-11] MEDS: hydrOXYzine 50 MG/ML INJ 25 MG IM (10:53)
[2024-02-11 11:12] LABS: Creatinine Urine Random 35.51 mg/dL; Protein (Total) Urine Random 11 mg/dL (0-12)
[2024-02-11 11:26] LABS: Alanine Aminotransferase 19 IU/L (<35); Albumin 2.9 g/dL (3.5-5.0); Albumin Globulin Ratio 0.9 (1.0-2.8); Alkaline Phosphatase 145 U/L (38-126); Aspartate Aminotransferase 26 IU/L (14-36); BUN Creatinine Ratio 14.9 (6-22); Bilirubin Total 0.3 mg/dL (0.2-1.3); Blood Urea Nitrogen 7 mg/dL (7-17); Calcium 8.6 mg/dL (8.4-10.2); Carbon Dioxide 20 mmol/L (22-32); Chloride 106 mmol/L (98-107); Estimated Glomerular Filt Rate > 60 mL/min (>60); Globulin 3.4 g/dL (1.7-4.1); Glucose 138 mg/dL (70-100); HEMOLYSIS < 15 (0-50); Potassium 4.1 mmol/L (3.4-5.1); Sodium 131 mmol/L (137-145); Total Protein 6.3 g/dL (6.3-8.2)
[2024-02-11] MEDS: hydrOXYzine 50 MG/ML INJ IM (14:58)
[2024-02-11] MEDS: ACETAMINOPHEN 325 MG TABLET 650 MG PO ×2 (15:41→21:46)
[2024-02-11] MEDS: KETOROLAC 30 MG/ML VIAL IV ×2 (15:41→21:46)
[2024-02-12] MEDS: KETOROLAC 30 MG/ML VIAL IV (04:22)
[2024-02-12] MEDS: ACETAMINOPHEN 325 MG TABLET 650 MG PO ×2 (04:23→10:52)
[2024-02-12 05:56] LABS: Add Manual Diff / Slide Review NO; Basophils Absolute Auto 100 /uL (0-100); Basophils Percent Auto 1.3 % (0-2); Eosinophils Absolute Auto 100 /uL (0-450); Eosinophils Percent Auto 0.8 % (2-4); Hematocrit 33.9 % (36-46); Hemoglobin 10.9 g/dL (12.0-16.0); Lymphocytes Absolute Auto 2400 /uL (1100-4500); Lymphocytes Percent Auto 20.6 % (25-40); Mean Corpuscular HGB Conc 32.2 % (30-36); Mean Corpuscular Hemoglobin 24.5 PG (26-34); Mean Corpuscular Volume 76.2 fL (80-100); Monocytes Absolute Auto 900 /uL (0-900); Monocytes Percent Auto 7.9 % (3-14); Neutrophils Absolute Auto 8100 /uL (1500-7000); Neutrophils Percent Auto 69.4 % (50-75); Platelet Count 222 X10^3/uL (150-400); Red Blood Cell Count 4.45 X10^6/uL (4.0-5.2); Red Cell Distribution Width 14.7 % (11.6-14.8); White Blood Cell Count 11.6 X10^3/uL (4.5-11.0)
[2024-02-12 08:34] VITALS: BP 146/73; PULSE 62
[2024-02-12] MEDS: PRENATAL VIT,CALC/IRON/FOLIC 1 TABLET 1 TAB PO (08:34)
[2024-02-12] MEDS: DOCUSATE 100 MG CAPSULE PO (08:34)
[2024-02-12] MEDS: LABETALOL 100 MG TABLET 200 MG PO ×2 (08:34→14:34)
[2024-02-12] MEDS: IBUPROFEN 600 MG TABLET PO (10:52)
[2024-02-12 14:34] VITALS: BP 136/84; PULSE 62
[2024-02-12] MEDS: RHO(D) IMMUNE GLOBULIN 1,500 UNIT SYRINGE 1500 UNIT IM (15:35)
--- NOTE | 2024-03-13 00:51 | P.DS_ITS ---
Discharge Providers Provider Date of admission: 02/11/24 05:33 Discharge Date: 02/12/24 Primary care physician: Doctor Parish MD Consults: 02/11/24 11:59 Consult to Regulatory Leader Routine Comment: Discharge provider: Sandie Lenz MD Summary Hospital Course Date Patient Seen: 02/12/24 Time Patient Seen: 13:30 Diagnoses: 37-4/7 weeks gestation Previous section Gestational diabetes requiring insulin Chronic hypertension Hospital Course: Patient is a 33-year-old 2 para 2 who presented on February 11, 2024 for a scheduled repeat section. She underwent this procedure without complication. Her postoperative course was unremarkable. She was discharged home on postop day # 1 on labetalol 200 mg twice a day. She was tolerating a diet. She was ambulating without assistance. Her pain was well controlled. No nausea or vomiting. Her blood pressures were controlled while inpatient. Peripartum Data Infant Delivery Method: Section Procedures: Spinal anesthesia Repeat low-transverse section complications: none 1: Gender: Female Disposition of : home Status at Discharge Cognitive/behavioral status at discharge: oriented Functional status at discharge: independent ambulation Overall status at discharge: patient is progressing back to baseline Time Spent with Patient Time attestation: Total time spent providing and/or coordinating discharge services: Time spent: Less than 30 minutes Objective Labs 02/12/24 05:41 02/11/24 10:35 Exam Vital Signs (past 8 hours): Oxygen Delivery Method Room Air Narrative Exam Narrative: Generally: Patient is sitting up in bed, holding , no acute distress Lungs: Clear to auscultation bilaterally Cardiovascular: Regular rate and rhythm Fundus: Firm at U Incision: Clean dry and intact with Aquacel dressing Extremities: Trace edema, negative Hom[place] Discharge Plan Discharge Plan Patient Disposition: Home Provider Discharge Comment: Call with fever, chills, redness or drainage around the incision, or bleeding vaginally more than a pad in an hour Ibuprofen 600 mg every 6 hours as needed, take with food or milk Tylenol 650 mg every 6 hours as needed Check a few fasting blood sugars and after meals and bring to appointment next week Discharge orders & Medications Prescriptions: Continued prenat.vits,ramya,ude-ktrz-tucpb Tablet See Rx Instructions .ROUTE .COMPLEX Rx Instructions: See Rx instructions Discontinued nystatin 100,000 unit/gram powder 1 applic topical BID Qty: 60 2RF labetalol 100 mg tablet 200 mg PO TID Patient Comments: pt also takes 100mg at bedtime. total daily dose is 500mg. fluconazole 100 mg tablet 100 mg PO DAILY Qty: 10 0RF nystatin-triamcinolone 100,000-0.1 unit/gram-% ointment 1 applic topical BID Qty: 60 2RF Rx Instructions: apply to effected area twice a day for 2-3 wks or until rash is gone Humulin N NPH Insulin KwikPen 100 unit/mL (3 mL) insulin pen 56 unit SUBCUT .HS No Action (DME) lancets Mis See Rx Instructions .ROUTE .MEDSUPPLY Qty: 120 3RF Rx Instructions: Testing blood sugars fasting and 2 hrs after each meal. 4x daily (DME) blood-glucose meter [Blood Glucose Monitoring] Kit See Rx Instructions .ROUTE .MEDSUPPLY Qty: 1 0RF Rx Instructions: To use with testing fasting and 2 hr PP blood sugars x4 daily (DME) pen needle, diabetic [Ultra-Thin II Ins Pen [place]] 29 gauge x 1/2 needle See Rx Instructions .Route Qty: 100 1RF Rx Instructions: For use with insulin pen QHS (DME) True Metrix Glucose Test Strip Strip See Rx Instructions .ROUTE .COMPLEX Qty: 50 0RF Dose Instruction: Testing blood sugars fasting and 2 hours after each meal. 4x daily Rx Instructions: Testing blood sugars fasting and 2 hours after each meal. 4x daily labetalol 200 mg tablet 800 mg PO TID nifedipine 60 mg tablet extended release 60 mg PO DAILY Follow up/Referrals: Swathi Webster MD [Physician] - 6 Weeks (Dr Webster 03/24/24 @ 11:00am for your 6 week follow up appointment) Sandie Lenz MD [Physician] - 1 Week (Dr. Lenz on 02/16 @ 12:00pm for incisional check ) Diet/Activity/Treatments Diet: Regular Activity: No heavy lifting Nothing in the vagina for 6 weeks Skin/Wound/Dressing Care Dressing: Do not remove dressing Visit Report/Discharge Packet Instructions: DI for Stand Alone Forms: Discharge: Care, Patient Portal/API, Stroke Signs & Symptoms Discharge Data Primary Care Provider: Miscellaneous,Doctor
== END 2024-02-12 15:35 | disposition home or self-care (01) | DRG 788 ==
PROVIDERS: Admitting Provider Obstetrics & Gynecology; Referring Provider Obstetrics & Gynecology; Visit Provider Obstetrics & Gynecology
PROC: 10D00Z1 Extraction of Products of Conception, Low, Open Approach (ICD-10-PCS; CPT 59514; principal; 2024-02-11 07:45)
DX: O34.211 Maternal care for low transverse scar from previous cesarean delivery (principal); Z3A.37 37 weeks gestation of pregnancy; Z67.11 Type A blood, Rh negative; O99.824 Streptococcus B carrier state complicating childbirth; O24.424 Gestational diabetes mellitus in childbirth, insulin controlled; Z37.0 Single live birth; O16.4 Unspecified maternal hypertension, complicating childbirth
CPT/HCPCS: 36415; 59050; 80053; 82570; 84156; 85025; 86850; 86870; 86900; 86901; J0136; J0360; J0690; J1100; J1885; J2274; J2405; J2790; J3410